=== PATIENT | male | born 1970 | race Hispanic/Latino ===

== ENCOUNTER 2020-07-25 20:26 | Inpatient (IN) | payer BC ==
[~2020-07-25] VITALS: Ht 177.8 cm; Wt 111.1 kg
[2020-07-25 20:58] LABS: BASOPHILS % 0.3 % (0.0-1.0); EOSINOPHILS # (AUTO) 0.1 (0.0-0.4); HEMATOCRIT 38.6 % (38.2-49.6); HEMOGLOBIN 13.5 g/dL (14.0-18.0); LYMPHOCYTES # (AUTO) 2.8 (1.0-3.2); LYMPHOCYTES % 26.8 % (18.0-39.1); MEAN CORPUSCULAR HEMOGLOBIN 30.7 pg (28-32); MEAN CORPUSCULAR VOLUME 87.7 fL (81-99); MONOCYTES # (AUTO) 0.8 (0.2-0.8); MONOCYTES % 7.3 % (4.4-11.3); NEUTROPHILS # (AUTO) 6.7 (2.1-6.9); NEUTROPHILS % 63.7 % (38.7-80.0); PLATELET COUNT 200 x10e3/uL (140-360); RED CELL DISTRIBUTION WIDTH 11.9 % (11.7-14.4)
--- NOTE | 2020-07-25 21:01 | NUR ---
bladder scan shows >100cc
[2020-07-25 21:08] LABS: CALCIUM 9.6 mg/dL (8.4-10.2); CREATININE, SERUM 1.47 mg/dL (0.72-1.25)
--- NOTE | 2020-07-25 21:10 | Emergency Department Note ---
History of Present Illnes History of Present Illness Chief Complaint: Genitourinary History of Present Illness This is a 49 year old male REPORTS DARK, TEA COLORED URINE X1 DAY WITH INTERMITTENT LOWER BACK PAIN;, DENIES N/V/D. Historian: Patient Arrival Mode: Car Onset (how long ago): day(s) (1) Location: LOWER BACK Quality: PAIN, TROUBLE URINATIN Radiation: Reports non-radiation Severity: moderate Onset quality: sudden Duration (how long): day(s) (1) Timing of current episode: intermittent Progression: worsening Context: Denies recent illness, Denies recent surgery, Denies trauma/injury Relieving factors: none Exacerbating factors: none Associated symptoms: Reports denies other symptoms Treatments prior to arrival: none Past Medical/Family History Physician Review I have reviewed the patient's past medical and family history. Any updates have been documented here. Past Medical History Recent Fever: No Clinical Suspicion of Infectio: Yes New/Unexplained Change in Ment: No Past Medical History: Hypertension, Diabetes, Hyperlipedemia Past Surgical History: Hernia Repair Social History Smoking Cessation: Never Smoker Counseling Performed: No Alcohol Use: None Any Illegal Drug Use: No Family History Family history of heart diseas: No Other Any Pre-Existing Lines (PICC,: No Review of Systems Review of Systems Constitutional: Reports no symptoms EENTM: Reports no symptoms Cardiovascular: Reports no symptoms Respiratory: Reports no symptoms Gastrointestinal: Reports no symptoms Genitourinary: Reports as per HPI Musculoskeletal: Reports no symptoms Integumentary: Reports no symptoms Neurological: Reports no symptoms Psychological: Reports no symptoms Endocrine: Reports no symptoms Hematological/Lymphatic: Reports no symptoms Physical Exam Related Data Allergies: Coded Allergies: No Known Allergies (Unverified , 07/25/20) Triage Vital Signs Vital Signs Date Time Temp Pulse Resp B/P (MAP) Pulse Ox O2 Delivery O2 Flow Rate FiO2 07/25/20 20:42 97.9 93 18 199/108 100 Room Air Vital signs reviewed: Yes Physical Exam CONSTITUTIONAL Constitutional: Present well-developed, Present well-nourished HENT HENT: Present normocephalic, Present atraumatic, Present oropharynx clear/moist, Present nose normal HENT L/R: Present left ext ear normal, Present right ext ear normal EYES Eyes: Reports PERRL, Reports conjunctivae normal NECK Neck: Present ROM normal PULMONARY Pulmonary: Present effort normal, Present breath sounds normal CARDIOVASCULAR Cardiovascular: Present regular rhythm, Present heart sounds normal, Present capillary refill normal, Present normal rate GASTROINTESTINAL Abdominal: Present soft, Present bowel sounds normal, Present tender (MILD SUPRAPUBIC TENDERNESS) GENITOURINARY Genitourinary: Present exam deferred SKIN Skin: Present warm, Present dry MUSCULOSKELETAL Musculoskeletal: Present ROM normal NEUROLOGICAL Neurological: Present alert, Present oriented x 3, Present no gross motor or sensory deficits PSYCHOLOGICAL Psychological: Present mood/affect normal, Present judgement normal Results Laboratory Result Diagram: 07/25/202041 Laboratory Laboratory Tests Test 07/25/20 21:20 07/25/20 20:42 Urine Color Yellow (YELLOW) Urine Clarity Clear (CLEAR) Urine pH 5.5 (5 - 7) Urine Specific [place] 1.025 (1.010-1.025) Urine Protein Negative (NEGATIVE) Urine Glucose (UA) 1+ (NEGATIVE) Urine Ketones Negative (NEGATIVE) Urine Blood 2+ (NEGATIVE) Urine Nitrite Negative (NEGATIVE) Urine Bilirubin Negative (NEGATIVE) Urine Urobilinogen 0.2 mg/dL (0.2 - 1) Urine Leukocyte Esterase Negative (NEGATIVE) Urine RBC 6-10 /HPF (0-5) Urine WBC 0-5 /HPF (0-5) Urine Epithelial Cells Few /LPF (NONE) Urine Uric Acid Crystals Few (FEW) Urine Bacteria Few /HPF (NONE) White Blood Count 10.44 x10e3/uL (4.8-10.8) Red Blood Count 4.40 x10e6/uL (4.3-5.7) Hemoglobin 13.5 g/dL (14.0-18.0) Hematocrit 38.6 % (38.2-49.6) Mean Corpuscular Volume 87.7 fL (81-99) Mean Corpuscular Hemoglobin 30.7 pg (28-32) Mean Corpuscular Hemoglobin Concent 35.0 g/dL (31-35) Red Cell Distribution Width 11.9 % (11.7-14.4) Platelet Count 200 x10e3/uL (140-360) Neutrophils (%) (Auto) 63.7 % (38.7-80.0) Lymphocytes (%) (Auto) 26.8 % (18.0-39.1) Monocytes (%) (Auto) 7.3 % (4.4-11.3) Eosinophils (%) (Auto) 1.0 % (0.0-6.0) Basophils (%) (Auto) 0.3 % (0.0-1.0) Neutrophils # (Auto) 6.7 (2.1-6.9) Lymphocytes # (Auto) 2.8 (1.0-3.2) Monocytes # (Auto) 0.8 (0.2-0.8) Eosinophils # (Auto) 0.1 (0.0-0.4) Basophils # (Auto) 0.0 (0.0-0.1) Absolute Immature Granulocyte (auto 0.09 x10e3/uL (0-0.1) Sodium Level 138 mmol/L (136-145) Potassium Level 4.0 mmol/L (3.5-5.1) Chloride Level 103 mmol/L (98-107) Carbon Dioxide Level 20 mmol/L (22-29) Anion Gap 19.0 mmol/L (8-16) Blood Urea Nitrogen 17 mg/dL (7-26) Creatinine 1.47 mg/dL (0.72-1.25) Estimat Glomerular Filtration Rate 51 ML/MIN (60-) BUN/Creatinine Ratio 12 (6-25) Glucose Level 195 mg/dL (74-118) Calcium Level 9.6 mg/dL (8.4-10.2) Laboratory Tests Test 07/25/20 20:42 White Blood Count 10.44 x10e3/uL (4.8-10.8) Red Blood Count 4.40 x10e6/uL (4.3-5.7) Hemoglobin 13.5 g/dL (14.0-18.0) Hematocrit 38.6 % (38.2-49.6) Mean Corpuscular Volume 87.7 fL (81-99) Mean Corpuscular Hemoglobin 30.7 pg (28-32) Mean Corpuscular Hemoglobin Concent 35.0 g/dL (31-35) Red Cell Distribution Width 11.9 % (11.7-14.4) Platelet Count 200 x10e3/uL (140-360) Neutrophils (%) (Auto) 63.7 % (38.7-80.0) Lymphocytes (%) (Auto) 26.8 % (18.0-39.1) Monocytes (%) (Auto) 7.3 % (4.4-11.3) Eosinophils (%) (Auto) 1.0 % (0.0-6.0) Basophils (%) (Auto) 0.3 % (0.0-1.0) Neutrophils # (Auto) 6.7 (2.1-6.9) Lymphocytes # (Auto) 2.8 (1.0-3.2) Monocytes # (Auto) 0.8 (0.2-0.8) Eosinophils # (Auto) 0.1 (0.0-0.4) Basophils # (Auto) 0.0 (0.0-0.1) Absolute Immature Granulocyte (auto 0.09 x10e3/uL (0-0.1) Lab results reviewed: Yes Imaging Imaging results reviewed: Yes Impressions Procedure: [id number] CT/CT ABDOMEN/PELVIS WO Exam Date: 07/25/20 Exam Time: 2204 REPORT STATUS: Signed EXAM: CT Abdomen and Pelvis WITHOUT contrast INDICATION: ^STONE PROTOCOL ^[id number] ^2204 ^Y COMPARISON: None. TECHNIQUE: Abdomen and pelvis were scanned utilizing a multidetector helical scanner from the lung base to the pubic symphysis without administration of IV contrast. Absence of intravenous contrast decreases sensitivity for detection of focal lesions and vascular pathology. Coronal and sagittal reformations were obtained. Routine protocol was performed. IV CONTRAST: None ORAL CONTRAST: None COMPLICATIONS: None RADIATION DOSE: Total DLP: A 45.6 mGy*cm Estimated effective dose: (DLP x 0.015 x size factor) mSv CTDIvol has been reviewed. It is below the limits set by the Radiation Protocol Committee (RPC). FINDINGS: LINES and TUBES: None. LOWER THORAX: Unremarkable HEPATOBILIARY: Hepatic steatosis. No biliary ductal dilation. GALLBLADDER: No radio-opaque stones or sludge. No wall thickening. SPLEEN: No splenomegaly. PANCREAS: No focal masses or ductal dilatation. ADRENALS: No adrenal nodules KIDNEYS/URETERS: Distal right ureteral calculus with mild right hydroureteronephrosis and moderate right perinephric and periureteral fat stranding. Ill-defined right renal inferior pole hypodensity is probably a cyst measuring approximately 4.2 cm. Evaluation of renal parenchyma is limited without intravenous contrast. No left renal stone or hydronephrosis. GI TRACT: No abnormal distention, wall thickening, or evidence of bowel obstruction. Appendix is normal. PELVIC ORGANS/BLADDER: Unremarkable. LYMPH NODES: No lymphadenopathy. VESSELS: Unremarkable. PERITONEUM / RETROPERITONEUM: No free air or fluid. BONES: Peripherally sclerotic lytic right iliac lesion measuring 2.8 cm. There are also left iliac sclerotic foci at the same level. SOFT TISSUES: Unremarkable. IMPRESSION: 1. 3 mm distal right ureteral obstructive calculus with mild right hydroureteronephrosis. Right perinephric and periureteral fat stranding. Superimposed urinary tract infection cannot be excluded. 2. Suspected right renal inferior pole cyst. Evaluation of renal parenchyma is limited without intravenous contrast. Recommend correlation with nonurgent renal ultrasound. 3. Hepatic steatosis. 4. Right iliac lytic lesion with sclerotic border, probably benign. Signed by: Dr. Ramirez Hyde MD on 07/25/2020 11:10 PM Dictated By: RAMIREZ HYDE MD 09 Transcribed By: OMAR on 07/25/202309 COPY TO: MOHAN DEVI MD~ Assessment & Plan Medical Decision Making MDM PT WITH TROUBLE URINATING, LOW BACK PAIN AND STATES URINE IS DARK IN COLOR CBC, CMP, UA ORDERED TO EVAL FOR HEMATURIA, UTI, LEUKOCYTOSIS, ELEVATED LFT'S, RENAL INSUFFICIENCY/FAILURE PT WITH URETEROLITHIASIS AND PERINEPHRIC FAT STRANDING ON RIGHT I SPOKE WITH DR HULL AND DR RAMIREZ Assessment & Plan Final Impression: (1) Ureterolithiasis (2) Intractable pain Depart Disposition: ADMITTED Last Vital Signs Date Time Temp Pulse Resp B/P (MAP) Pulse Ox O2 Delivery O2 Flow Rate FiO2 07/25/20 20:42 97.9 93 18 199/108 100 Room Air MOHAN DEVI MD Jul 25, 2020 21:10
[2020-07-25] MEDS ORDERED: MORPHINE SULFATE 2 MG/ML SYR 1ML IV STA (21:26)
[2020-07-25] MEDS ORDERED: ONDANSETRON HCL INJ 2MG/ML 2ML 2 MG/ML VIAL IV STA (21:26)
--- NOTE | 2020-07-25 21:29 | NUR ---
sterile technique used for straight cath procedure. only 80cc obtained, urine is yellow and clear. patient tolerated procedure well.
[2020-07-25 21:39] LABS: BILIRUBIN,URINE NEGATIVE (NEGATIVE); CLARITY,URINE CLEAR (CLEAR); COLOR,URINE YELLOW (YELLOW); KETONES,URINE NEGATIVE (NEGATIVE); LEUKOCYTE ESTERASE ,URINE NEGATIVE (NEGATIVE); NITRITE,URINE NEGATIVE (NEGATIVE); PROTEIN,URINE DIPSTICK NEGATIVE (NEGATIVE); URINE UROBILINOGEN 0.2 mg/dL (0.2 - 1)
[2020-07-25 21:42] LABS: BACTERIA,URINE FEW /HPF; EPITHELIAL CELLS,URINE FEW /LPF; WBC,URINE (MAN) 0-5 /HPF (0-5)
[2020-07-25 21:45] LABS: URIC ACID CRYSTALS,URINE FEW (FEW)
--- NOTE | 2020-07-25 23:13 | Diagnostic Imaging Report ---
EXAM: CT Abdomen and Pelvis WITHOUT contrast INDICATION: ^STONE PROTOCOL ^[id number] ^2204 ^Y COMPARISON: None. TECHNIQUE: Abdomen and pelvis were scanned utilizing a multidetector helical scanner from the lung base to the pubic symphysis without administration of IV contrast. Absence of intravenous contrast decreases sensitivity for detection of focal lesions and vascular pathology. Coronal and sagittal reformations were obtained. Routine protocol was performed. IV CONTRAST: None ORAL CONTRAST: None COMPLICATIONS: None RADIATION DOSE: Total DLP: A 45.6 mGy*cm Estimated effective dose: (DLP x 0.015 x size factor) mSv CTDIvol has been reviewed. It is below the limits set by the Radiation Protocol Committee (RPC). FINDINGS: LINES and TUBES: None. LOWER THORAX: Unremarkable HEPATOBILIARY: Hepatic steatosis. No biliary ductal dilation. GALLBLADDER: No radio-opaque stones or sludge. No wall thickening. SPLEEN: No splenomegaly. PANCREAS: No focal masses or ductal dilatation. ADRENALS: No adrenal nodules KIDNEYS/URETERS: Distal right ureteral calculus with mild right hydroureteronephrosis and moderate right perinephric and periureteral fat stranding. Ill-defined right renal inferior pole hypodensity is probably a cyst measuring approximately 4.2 cm. Evaluation of renal parenchyma is limited without intravenous contrast. No left renal stone or hydronephrosis. GI TRACT: No abnormal distention, wall thickening, or evidence of bowel obstruction. Appendix is normal. PELVIC ORGANS/BLADDER: Unremarkable. LYMPH NODES: No lymphadenopathy. VESSELS: Unremarkable. PERITONEUM / RETROPERITONEUM: No free air or fluid. BONES: Peripherally sclerotic lytic right iliac lesion measuring 2.8 cm. There are also left iliac sclerotic foci at the same level. SOFT TISSUES: Unremarkable. IMPRESSION: 1. 3 mm distal right ureteral obstructive calculus with mild right hydroureteronephrosis. Right perinephric and periureteral fat stranding. Superimposed urinary tract infection cannot be excluded. 2. Suspected right renal inferior pole cyst. Evaluation of renal parenchyma is limited without intravenous contrast. Recommend correlation with nonurgent renal ultrasound. 3. Hepatic steatosis. 4. Right iliac lytic lesion with sclerotic border, probably benign. Signed by: Dr. Ramirez Jones MD on 07/25/2020 11:10 PM
--- OUTSIDE RECORDS SUMMARY | 2020-07-25 23:33 | XMS REPORT | Continuity of Care Document ---
Author Author [facility] t Organization [facility] Address [address] [place] [address] Phone Unavailable Care Team Providers Care Features Editor Name Role Phone Stephon DEVI Attphys Unavailable SHERIF STINSON P.A. Attphys Unavailable PRASANNA PAIZ APRN Attphys Unavailable ISAIAS SOLANO M.D. Attphys Unavailable HERMAN CHAND M.D. Attphys Unavailable TROY PHILLIPS D.O. Attphys Unavailable CURRY ANDINO M.D. Attphys Unavailable Payers Payer Name Policy Type Policy Number Effective Date Expiration Date S ource Problems Condition Name Condition Details Condition Category Status Onset Date Resolution Date Last Treatment Date Treating Clinician Comments Source History of tonsillitis History of tonsillitis Problem Resolved [facility] History of Allergic rhinitis due to pollen History of Allergic rhinitis due to pollen Problem Resolved [facility] History of conjunctivitis History of conjunctivitis Problem Resolved [facility] Obesity (BMI 30-39.9) Obesity (BMI 30-39.9) Problem Active [facility] History of Upper respiratory infection, acute History of Upper respiratory infection, acute Problem Resolved [facility] Nontraumatic rupture of biceps femoris tendon of right lower extremity Nontraumatic rupture of biceps femoris tendon of right lower extremity Problem Active [facility] Erectile dysfunction Erectile dysfunction Problem Active [facility] Umbilical hernia Umbilical hernia Problem Active [facility] Fever and chills Fever and chills Problem Active [facility] GERD without esophagitis GERD without esophagitis Problem Active [facility] Hyperglycemia Hyperglycemia Problem Active [facility] Diabetes mellitus Diabetes mellitus Problem Active [facility] Essential (primary) hypertension Essential (primary) hypertensio n Problem Active [facility] Hypertriglyceridemia Hypertriglyceridemia Problem Active [facility] Mixed hyperlipidemia Mixed hyperlipidemia Problem Active [facility] Influenza vaccination declined Influenza vaccination declined Problem Active [facility] Negative depression screening Negative depression screening Problem Active [facility] Allergies, Adverse Reactions, Alerts Allergy Name Allergy Type Status Severity Reaction(s) Onset Date Inacti ve Date Treating Clinician Comments Source No Known Allergies DA Active U 2018-12-29 00:00:00 [facility] No Known Allergies DA Active U 2014-12-14 00:00:00 [facility] Family History Family Member Diagnosis Comments Start Date Stop Date Source Unknown Family Member Family history of Denial Of Any Significant Medical History Family History [facility] Father Family history of diabetes mellitus [facility] Father Family history of hypertension [facility] Social History Smoking Status Start Date Stop Date Source Never smoked tobacco (finding[facility] Medications Ordered Medication Name Filled Medication Name Start Date Stop Da te Current Medication? Ordering Clinician Indication Dosage Frequency Signature (SIG) Comments Components Source hydroCHLOROthiazide 12.5 MG Oral Capsule hydroCHLOROth iazide 12.5 MG Oral Capsule 2020-07-05 00:00:00 Yes SHERIF STINSON P.A. 1 Q D TAKE 1 CAPSULE DAILY [facility] Januvia 100 MG Oral Tablet Januvia 100 MG Oral Tablet 2020-04-08 00:0 0:00 Yes SHERIF STINSON P.A. 1 QD TAKE 1 TABLET DAILY [facility] metFORMIN HCl ER 500 MG Oral Tablet Extended Release 2 4 Hour metFORMIN HCl ER 500 MG Oral Tablet Extended Release 24 Hour 2017-12-07 00:00:00 Yes SHERIF STINSON P.A. 1 Q0.5D TAKE 1 TABLET BY MOUTH TWICE DAILY [facility] Lisinopril 40 MG Oral Tablet Lisinopril 40 MG Oral Tablet 00:00:00 Yes SHERIF STINSON P.A. QD TAKE 1 TABLET BY MOUTH EVERY DAY [facility] Simvastatin 20 MG Oral Tablet Simvastatin 20 MG Oral Tablet 2015 00:00:00 Yes SHERIF STINSON P.A. QD TAKE 1 TABLET BY MOUT H AT BEDTIME [facility] Miriam Aspirin EC Low Dose 81 MG Oral Tablet Delayed Re lease Miriam Aspirin EC Low Dose 81 MG Oral Tablet Delayed Release Yes [facility] Immunizations Ordered Immunization Name Filled Immunization Name Date Status Comments Source Tdap Unknown Completed [facility] Vital Signs Vital Name Observation Time Observation Value Comments Source Systolic blood pressure 2020-07-05 07:54:00 153 mm[Hg] Loca tion: LUE; Position: Sitting [facility] Diastolic blood pressure 2020-07-05 07:54:00 88 mm[Hg] Loc ation: LUE; Position: Sitting [facility] Body height 2020-07-05 07:54:00 70 [in_us] [facility] Weight 2020-07-05 07:54:00 248 [lb_av] [facility] Body mass index (BMI) [Ratio] 2020-07-05 07:54:00 35.58 kg/m2 [facility] Body temperature 2020-07-05 07:54:00 97.4 [degF] Method: Temporal [facility] Heart Rate 2020-07-05 07:54:00 80 /min [facility] Respiratory rate 2020-07-05 07:54:00 14 /min [facility] Systolic blood pressure 2020-04-08 07:43:00 171 mm[Hg] Loca tion: LUE; Position: Sitting [facility] Diastolic blood pressure 2020-04-08 07:43:00 82 mm[Hg] Loc ation: LUE; Position: Sitting [facility] Heart Rate 2020-04-08 07:43:00 73 /min [facility] Systolic blood pressure 2020-04-08 07:42:00 168 mm[Hg] Loca tion: LUE; Position: Sitting [facility] Diastolic blood pressure 2020-04-08 07:42:00 87 mm[Hg] Loc ation: LUE; Position: Sitting [facility] Heart Rate 2020-04-08 07:42:00 67 /min [facility] Body height 2020-04-08 07:42:00 70 [in_us] [facility] Weight 2020-04-08 07:42:00 255 [lb_av] [facility] Body mass index (BMI) [Ratio] 2020-04-08 07:42:00 36.59 kg/m2 [facility] Body temperature 2020-04-08 07:42:00 97.8 [degF] Method: Temporal [facility] Respiratory rate 2020-04-08 07:42:00 15 /min [facility] BP Systolic 2019-12-11 07:46:00 144 mm[Hg] Location: LUE; Positi on: Sitting [facility] BP Diastolic 2019-12-11 07:46:00 81 mm[Hg] Location: LUE; Positi on: Sitting [facility] Heart Rate 2019-12-11 07:46:00 68 /min [facility] BP Systolic 2019-12-11 07:45:00 151 mm[Hg] Location: LUE; Positi on: Sitting [facility] BP Diastolic 2019-12-11 07:45:00 81 mm[Hg] Location: LUE; Positi on: Sitting [facility] Heart Rate 2019-12-11 07:45:00 75 /min [facility] Height 2019-12-11 07:45:00 70 [in_us] [facility] Weight 2019-12-11 07:45:00 250.25 [lb_av] [facility] Body Mass Index Calculated 2019-12-11 07:45:00 35.91 kg/m2 [facility] Temperature 2019-12-11 07:45:00 97.5 [degF] Method: Temporal [facility] Respiration Rate 2019-12-11 07:45:00 16 /min [facility] BP Systolic 2019-09-02 07:51:00 151 mm[Hg] Location: LUE; Positi on: Sitting [facility] BP Diastolic 2019-09-02 07:51:00 85 mm[Hg] Location: LUE; Positi on: Sitting [facility] Heart Rate 2019-09-02 07:51:00 73 /min [facility] Respiration Rate 2019-09-02 07:51:00 16 /min [facility] BP Systolic 2019-09-02 07:48:00 164 mm[Hg] Location: LUE; Positi on: Sitting [facility] BP Diastolic 2019-09-02 07:48:00 102 mm[Hg] Location: LUE; Positi on: Sitting [facility] Heart Rate 2019-09-02 07:48:00 72 /min [facility] Respiration Rate 2019-09-02 07:48:00 16 /min [facility] Height 2019-09-02 07:48:00 70 [in_us] [facility] Weight 2019-09-02 07:48:00 246.375 [lb_av] [facility] Body Mass Index Calculated 2019-09-02 07:48:00 35.35 kg/m2 [facility] Temperature 2019-09-02 07:48:00 97.5 [degF] Method: Temporal [facility] BP Systolic 2019-05-28 08:31:00 152 mm[Hg] Location: LUE; Positi on: Sitting [facility] BP Diastolic 2019-05-28 08:31:00 88 mm[Hg] Location: LUE; Positi on: Sitting [facility] Height 2019-05-28 08:31:00 70 [in_us] [facility] Weight 2019-05-28 08:31:00 245 [lb_av] [facility] Body Mass Index Calculated 2019-05-28 08:31:00 35.15 kg/m2 [facility] Temperature 2019-05-28 08:31:00 97.2 [degF] Method: Temporal [facility] Heart Rate 2019-05-28 08:31:00 67 /min [facility] Respiration Rate 2019-05-28 08:31:00 16 /min [facility] BP Systolic 2019-02-14 08:43:00 133 mm[Hg] Location: LUE; Positi on: Sitting [facility] BP Diastolic 2019-02-14 08:43:00 75 mm[Hg] Location: LUE; Positi on: Sitting [facility] Height 2019-02-14 08:43:00 70 [in_us] [facility] Weight 2019-02-14 08:43:00 253.5 [lb_av] [facility] Body Mass Index Calculated 2019-02-14 08:43:00 36.37 kg/m2 [facility] Temperature 2019-02-14 08:43:00 97.4 [degF] Method: Temporal [facility] Heart Rate 2019-02-14 08:43:00 76 /min Location: L Brachial Artery; [facility] Respiration Rate 2019-02-14 08:43:00 16 /min [facility] Procedures Procedure Date / Time Performed Performing Clinician Sour e [O] Hemoglobin A1c (in office) 2020-04-08 00:00:00 [facility] [Q] LIPID PANEL WITH REFLEX TO DIRECT LDL 2020-04-08 00:00:00 [facility] [QL] CMP W/EGFR 2020-04-08 00:00:00 [facility] [QL] CREATINE KINASE, TOTAL 2020-04-08 00:00:00 [facility] [QL] TSH, 3RD GENERATION W/REFLEX TO FT4 2020-04-08 00:00:00 [facility] [QLH] CMP W/EGFR 2019-12-11 00:00:00 [facility] [QL] HEMOGLOBIN A1c 2019-12-11 00:00:00 [facility] [QL] MICROALBUMIN, RANDOM URINE (W/CREATININE) 2019-12-11 00:00 :00 [facility] [Q] LIPID PANEL WITH REFLEX TO DIRECT LDL 2019-12-11 00:00:00 [facility] [QL] CREATINE KINASE, TOTAL 2019-12-11 00:00:00 [facility] [QL] TSH, 3RD GENERATION W/REFLEX TO FT4 2019-12-11 00:00:00 [facility] [Q] LIPID PANEL WITH REFLEX TO DIRECT LDL 2019-09-02 00:00:00 [facility] [QLH] CMP W/EGFR 2019-09-02 00:00:00 [facility] [QLH] TSH, 3RD GENERATION W/REFLEX TO FT4 2019-09-02 00:00:00 [facility] [QL] CREATINE KINASE, TOTAL 2019-09-02 00:00:00 [facility] [QL] MICROALBUMIN, RANDOM URINE (W/CREATININE) 2019-09-02 00:00 :00 [facility] [QL] TSH, 3RD GENERATION W/REFLEX TO FT4 2019-02-14 00:00:00 [facility] [QLH] CMP W/EGFR 2019-02-14 00:00:00 [facility] [[facility]] CBC (INCLUDES DIFF/PLT) 2019-02-14 00:00:00 [facility] [[facility]] HEMOGLOBIN A1c 2019-02-14 00:00:00 [facility] [[facility]] MICROALBUMIN, RANDOM URINE (W/CREATININE) 2019-02-14 00:00 :00 [facility] [] LIPID PANEL WITH REFLEX TO DIRECT LDL 2019-02-14 00:00:00 [facility] Plan of Care Planned Activity Planned Date Details Comments Source Future Appointment 2020-10-04 07:30:00 Clyde GORMAN [facility] Encounters Start Date/Time End Date/Time Encounter Type Admission Type [facility] Care Department Encounter ID Source 2020-07-05 07:30:00 2020-07-05 07:30:00 Appointment; SHERIF STINSON P.A. CAMPOS, BERTHA [facility] [id number] [facility] 2020-04-08 07:30:00 2020-04-08 07:30:00 Appointment; SHERIF STINSON P.A. CAMPOS, BERTHA [facility], [address] [id number] [facility] 2019-12-11 07:30:00 2019-12-11 07:30:00 Appointment; SHERIF STINSON P.A. CAMPOS, BERTHA P.[facility]ik[facility], [address] [id number] [facility] 2019-09-02 07:30:00 2019-09-02 07:30:00 Appointment; SHERIF STINSON P.A. CAMPOS, BERTHA, P.[facility] [id number] [facility] 2019-05-28 08:15:00 2019-05-28 08:15:00 Appointment; SHERIF STINSON P.A. CAMPOS, BERTHA, [facility], [address] [id number] [facility] 2019-02-14 08:30:00 2019-02-14 08:30:00 Appointment; PRASANNA PAIZ A PRN BECK, SHERI, APRN [facility] [id number] [facility] 2018-08-15 07:45:00 2018-08-15 07:45:00 Appointment; SHERIF STINSON P.A. CAMPOS, BERTHA [facility] [id number] [facility] 2018-05-15 07:45:00 2018-05-15 07:45:00 Appointment; SHERIF STINSON P.A. CAMPOS, BERTHA, P.A. UTP UTP [id number] [facility] 2017-12-07 14:30:00 2017-12-07 14:30:00 Appointment; SHERIF STINSON P.A. CAMPOS, BERTHA, P.AVikki [facility] UTP [id number] [facility] 2017-11-01 14:00:00 2017-11-01 14:00:00 Appointment; ISAIAS SOLANO M.D. SATTAR, BEENA, M.D. [facility] UTP [id number] [facility] 2017-10-29 10:45:00 2017-10-29 10:45:00 Appointment; GEO CHAND M.D. BORTOLOTTI, JULIE, M.D. [facility] UTP [id number] [facility] 2017-08-31 14:45:00 2017-08-31 14:45:00 Appointment; SHERIF STINSON P.A. CAMPOS, BERTHA, P.A. [facility] UTP [id number] [facility] 2017-07-27 09:15:00 2017-07-27 09:15:00 Appointment; MEREDITH PHILLIPS D.O. EKHAESE, OBONORUMA, D.O. UTP UTP [id number] [facility] 2017-07-02 15:00:00 2017-07-02 15:00:00 Appointment; CURRY ANDINO M.D. VAZQUEZ, NOEMI, M.D. [facility] UTP [id number] [facility] 2017-06-27 10:00:00 2017-06-27 10:00:00 Appointment; SHERIF STINSON P.A. CAMPOS, BERTHA, P.AVikki UTP UTP [id number] [facility] 2017-06-06 14:00:00 2017-06-06 14:00:00 Appointment; MEREDITH PHILLIPS D.O. EKHAESE, OBONORUMA, D.O. UTP UTP [id number] [facility] 2017-04-06 08:00:00 2017-04-06 08:00:00 Appointment; SHERIF STINSON P.A. CAMPOS, BERTHA, P.A. UTP UTP [id number] [facility] Results Test Description Test Time Test Comments Results Result Comments Source CT ABDOMEN/PELVIS WO 2020-07-25 22:31:00 [place] [address] Patient Name: HOLLY LEYVA MR #: [id number] : 1970 Age/Sex: 49/M Req #: [id number] Adm Physician: Ordered by: MOHAN DEVI MD Report #: [id number] Location: ER Room/Bed: Procedure: [id number] CT/CT ABDOMEN/PELVIS WO Exam Date: 07/25/20 Exam Time: 2204 REPORT STATUS: Signed EXAM: CT Abdomen and Pelvis WITHOUT contrast INDICATION: STONE PROTOCOL [id number] COMPARISON: None. TECHNIQUE: Abdomen and pelvis were scanned utilizing a multidetector helical scanner from the lung base to the pubic symphysis wi thout administration of IV contrast. Absence of intravenous contrast decreases sensitivity for detection of focal lesions and vascular pathology. Coronal and sagittal reformations were obtained. Routine protocol was performed. IV CONTRAST: None ORAL CONTRAST: None COMPLICATIONS: None RADIATION DOSE: Total DLP: A 45.6 mGy*cm Estimated effective dose: (DLP x 0.015 x size factor) mSv CTDIvol has been reviewed. It is below the limits set by the Radiation Protocol Committee (RPC). FINDINGS: LINES and TUBES: None. LOWER THORAX: Unremarkable HEPATOBILIARY: Hepatic steatosis. No biliary ductal dilation. GALLBLADDER: No radio-opaque stones or sludge. No wall thickening. SPLEEN: No splenomegaly. PANCREAS: No focal masses or ductal dilatation. ADRENALS: No adrenal nodules KIDNEYS/URETERS: Distal right ureteral calculus with mild right hydroureteronephrosis and moderate right perinephric and periureteral fat stranding. Ill-defined right renal inferior pole hypodensity is probably a cyst measuring approximately 4.2 cm. Evaluation of renal parenchyma is limited without intravenous contrast. No left renal stone or hydronephrosis. GI TRACT: No abnormal distention, wall thickening, or evidence of bowel obstruction. Appendix is normal. PELVIC ORGANS/BLADDER: Unremarkable. LYMPH NODES: No lymphadenopathy. VESSELS: Unremarkable. PERITONEUM / RETROPERITONEUM: No free air or fluid. BONES: Peripherally sclerotic lytic right iliac lesion measuring 2.8 cm. There are also left iliac sclerotic foci at the same level. SOFT TISSUES: Unremarkable. IMPRESSION: 1. 3 mm distal right ureteral obstructive calculus with mild right hydroureteronephrosis. Right perinephric and periureteral fat stranding. Superimposed urinary tract infection cannot be excluded. 2. Suspected right renal inferior pole cyst. Evaluation of renal parenchyma is limited without intravenous contrast. Recommend correlation with nonurgent renal ultrasound. 3. Hepatic steatosis. 4. Right iliac lytic lesion with sclerotic border, probably benign. Signed by: Dr. Ramirez Hyde MD on 07/25/2020 11:10 PM Dictated By: RAMIREZ HYDE MD 09 Transcribed By: OMAR on 07/25/202309 COPY TO: MOHAN DEVI MD [O] Hemoglobin A1c (in office) 2020-07-05 07:55:00 Test Item HEMOGLOBIN A1c; Abnormal (test code = 4548-4) 7.1 A [facility][Q] LIPID PANEL WITH REFLEX TO DIRECT LDL 2020-04-08 08:38:00* Test Item Value Reference Range Interpretation Comments CHOLESTEROL, TOTAL; Normal (test code = 2093-3) 166 mg/dl <200 N HDL CHOLESTEROL; Normal (test code = 2085-9) 40 mg/dl > OR = 40 N TRIGLYCERIDES; Above High Threshold (test code = 2571-8) 275 mg/dl <150 If a non-fasting specimen was collected, considerrepeat triglyceride testing on a fasting specimenif clinically indicated. En et al. J. of Clin. Lipidol. 2015;9:129-169. LDL-CHOLESTEROL; Normal (test code = 44119-3) 90 {MG/DL MAKENZIE} N Reference range: <100 Desirable range <100 mg/dL for primary prevention; <70 mg/dL for patients with CHD or diabetic patients with > or = 2 CHD risk factors. LDL-C is now calculated using the Jason calculation, which is a validated novel method providing better accuracy than the Friedewald equation in the estimation of LDL-C. Braden SS et al. GLADIS. 2013;310(19): 1698-4341 (http ://education.BitPoster/faq/MBS622) CHOL/HDLC RATIO (test code = CHOL/HDLC RATIO) 4.2 {CALC} <5.0 N NON HDL CHOLESTEROL (test code = NON HDL CHOLESTEROL) 126 {MG/DL C AL} <130 N For patients with diabetes plus 1 major ASCVD risk factor, treating to a non-HDL-C goal of <100 mg/dL (LDL-C of <70 mg/dL) is considered a therapeutic option. [facility][QL] CMP [id number] 08:38:00* Test Item Value Reference Range Interpretation Comments GLUCOSE; Above High Threshold (test code = 1547-9) 212 mg/dl 65- 99 Fasting reference interval For someone without known diabetes, a glucosevalue >125 mg/dL indicates that they may havediabetes and this should be confirmed with afollow- up test. UREA NITROGEN (BUN) (test code = UREA NITROGEN (BUN)) 16 mg/dl 7-25 N CREATININE (test code = CREATININE) 0.99 mg/dl 0.60-1.35 N eGFR NON- (test code = eGFR NON-TINO N [place]IZ[place]) 90 {ML/MIN/1.7} > OR = 60 N eGFR (test code = eGFR ) 10 4 {ML/MIN/1.7} > OR = 60 N BUN/CREATININE RATIO (test code = BUN/CREATININE RATIO) NOT APPLICA BLE 6-22 SODIUM (test code = SODIUM) 137 mmol/L 135-146 N POTASSIUM (test code = POTASSIUM) 4.3 mmol/L 3.5-5.3 N CHLORIDE (test code = CHLORIDE) 101 mmol/L 98-110 N CARBON DIOXIDE (test code = CARBON DIOXIDE) 28 mmol/L 20-32 N CALCIUM (test code = CALCIUM) 9.7 mg/dl 8.6-10.3 N PROTEIN, TOTAL (test code = PROTEIN, TOTAL) 7.2 g/dl 6.1-8.1 N ALBUMIN (test code = ALBUMIN) 4.5 g/dl 3.6-5.1 N GLOBULIN (test code = GLOBULIN) 2.7 {G/DL CALC} 1.9-3.7 N ALBUMIN/GLOBULIN RATIO (test code = ALBUMIN/GLOBULIN RATIO) 1.7 {CALC} 1.0-2.5 N BILIRUBIN, TOTAL; Normal (test code = 97899-1) 0.5 mg/dl 0.2-1.2 N ALKALINE PHSPHATASE (test code = ALKALINE PHSPHATASE) 73 u/l 36-130 N AST; Normal (test code = 1916-6) 25 u/l 10-40 N ALT; Normal (test code = 1742-6) 38 u/l 9-46 N [facility][QL] CREATINE KINASE, [id number] 08:38:00* Test Item Value Reference Range Interpretation Comments CREATINE KINASE, TOTAL (test code = CREATINE KINASE, TOTAL) 61 u/l 44-196 N [facility][QL] TSH, 3RD GENERATION W/REFLEX TO [id number] 08:38:00* Test Item Value Reference Range Interpretation Comments TSH, 3RD GENERATION W/REFLEX TO FT4 (eboni t code = TSH, 3RD GENERATION W/REFLEX TO FT4) 2.00 {MIU/L} 0.40-4.50 N [facility][O] Hemoglobin A1c (in office)2020-04-08 07:53:00 * Test Item Value Reference Range Interpretation Comments HEMOGLOBIN A1c; Abnormal (test code = 4548-4) 8.1 A [facility][O] Hemoglobin A1c (in office)2019-12-11 10:10:00 * Test Item Value Reference Range Interpretation Comments HEMOGLOBIN A1c; Abnormal (test code = 4548-4) 6.9 A [facility][] LIPID PANEL WITH REFLEX TO DIRECT LDL 2019-12-11 09:01:00* Test Item Value Reference Range Interpretation Comments CHOLESTEROL, TOTAL; Normal (test code = 2093-3) 182 mg/dl <200 N HDL CHOLESTEROL; Below Low Threshold (test code = 2085-9) 38 mg/dl >40 TRIGLYCERIDES; Above High Threshold (test code = 2571-8) 236 mg/dl <150 If a non-fasting specimen was collected, considerrepeat triglyceride testing on a fasting specimenif clinically indicated. En et al. J. of Clin. Lipidol. 2015;9:129-169. LDL-CHOLESTEROL; Above High Threshold (test code = 90043-7) 108 {MG/DL MAKENZIE} Reference range: <100 Desirable range <1 00 mg/dL for primary prevention; <70 mg/dL for patients with CHD or diabetic patients with > or = 2 CHD risk factors. LDL-C is now calculated using the Braden-Contreras calculation, which is a validated novel method providing better accuracy than the Friedewald equation in the estimation of LDL-C. Braden SS et al. GLADIS. 2013;310(19): 8044-0197 (http ://education.Goodreads.Fuhu/faq/MXU228) CHOL/HDLC RATIO (test code = CHOL/HDLC RATIO) 4.8 {CALC} <5.0 N NON HDL CHOLESTEROL (test code = NON HDL CHOLESTEROL) 144 {MG/DL C AL} <130 For patients with diabetes plus 1 major ASCVD risk factor, treating to a non-HDL-C goal of <100 mg/dL (LDL-C of <70 mg/dL) is considered a therapeutic option. [facility]] MICROALBUMIN, RANDOM URINE (W/CREATININE) 2019-12-11 09:01:00* Test Item Value Reference Range Interpretation Comments CREATININE, RANDOM URINE (test code = CREATININE, RANDOM URI NE) 104 mg/dl 20-320 N MICROALBUMIN (test code = MICROALBUMIN) 0.4 mg/dl N Reference RangeNot established MICROALBUMIN/CREATININE RATIO, RANDOM UR INE (test code = MICROALBUMIN/CREATININE RATIO, RANDOM URINE) 4 {MCG/MG CRE} <30 N The ADA de fines abnormalities in albuminexcretion as follows: Category Result (mcg/mg creatinine) Normal <30Microalbuminuria 30-299 Clinical albuminuria > OR = 300 The ADA recommends that at least two of threespecimens collected within a 3-6 month period beabnormal before considering a patient to bewithin a diagnostic category. [facility]] CMP [id number] 09:01:00* Test Item Value Reference Range Interpretation Comments GLUCOSE; Above High Threshold (test code = 1547-9) 181 mg/dl 65- 99 Fasting reference interval For someone without known diabetes, a glucosevalue >125 mg/dL indicates that they may havediabetes and this should be confirmed with afollow- up test. UREA NITROGEN (BUN) (test code = UREA NITROGEN (BUN)) 18 mg/dl 7-25 N CREATININE (test code = CREATININE) 1.01 mg/dl 0.60-1.35 N eGFR NON- (test code = eGFR NON-TINO N [place]) 88 {ML/MIN/1.7} > OR = 60 N eGFR (test code = eGFR ) 10 1 {ML/MIN/1.7} > OR = 60 N BUN/CREATININE RATIO (test code = BUN/CREATININE RATIO) NOT APPLICA BLE 6-22 SODIUM (test code = SODIUM) 138 mmol/L 135-146 N POTASSIUM (test code = POTASSIUM) 4.4 mmol/L 3.5-5.3 N CHLORIDE (test code = CHLORIDE) 102 mmol/L 98-110 N CARBON DIOXIDE (test code = CARBON DIOXIDE) 29 mmol/L 20-32 N CALCIUM (test code = CALCIUM) 10.0 mg/dl 8.6-10.3 N PROTEIN, TOTAL (test code = PROTEIN, TOTAL) 7.4 g/dl 6.1-8.1 N ALBUMIN (test code = ALBUMIN) 4.5 g/dl 3.6-5.1 N GLOBULIN (test code = GLOBULIN) 2.9 {G/DL CALC} 1.9-3.7 N ALBUMIN/GLOBULIN RATIO (test code = ALBUMIN/GLOBULIN RATIO) 1.6 {CALC} 1.0-2.5 N BILIRUBIN, TOTAL; Normal (test code = 39117-2) 0.5 mg/dl 0.2-1.2 N ALKALINE PHSPHATASE (test code = ALKALINE PHSPHATASE) 67 u/l 40-115 N AST; Normal (test code = 1916-6) 18 u/l 10-40 N ALT; Normal (test code = 1742-6) 31 u/l 9-46 N [facility]] CREATINE KINASE, [id number] 09:01:00* Test Item Value Reference Range Interpretation Comments CREATINE KINASE, TOTAL (test code = CREATINE KINASE, TOTAL) 44 u/l 44-196 N [facility]] TSH, 3RD GENERATION W/REFLEX TO FT4 2019-12-11 09:01:00* Test Item Value Reference Range Interpretation Comments TSH, 3RD GENERATION W/REFLEX TO FT4 (eboni t code = TSH, 3RD GENERATION W/REFLEX TO FT4) 1.52 {MIU/L} 0.40-4.50 N [facility]] HEMOGLOBIN [id number] 09:01:00* Test Item Value Reference Range Interpretation Comments HEMOGLOBIN A1c; Above High Threshold (test code = 4548-4) 7.2 {% of total} <5.7 For someone without known diabetes, a he moglobin Q0mmxkyr of 6.5% or greater indicates that they may have diabetes and this should be confirmed with a follow-up test. For someone with known diabetes, a value <7% indicates that their diabetes is well controlled and a value greater than or equal to 7% indicates suboptimal control. A1c targets should be individualized based on duration of diabetes, age, comorbid conditions, and other considerations. Currently, no consensus exists regarding use ofhemoglobin A1c for diagnosis of diabetes for children. [facility][O] Hemoglobin A1c (in office)2019-09-02 09:59:00 * Test Item Value Reference Range Interpretation Comments HEMOGLOBIN A1c; Abnormal (test code = 4548-4) 6.3 A [facility][O] Hemoglobin A1c (in office)2019-05-28 08:40:00 * Test Item Value Reference Range Interpretation Comments HEMOGLOBIN A1c (test code = 4548-4) 6.3 [facility][] LIPID PANEL WITH REFLEX TO DIRECT LDL 2019-02-14 09:36:00* Test Item Value Reference Range Interpretation Comments CHOLESTEROL, TOTAL; Normal (test code = 2093-3) 172 mg/dl <200 N HDL CHOLESTEROL; Below Low Threshold (test code = 2085-9) 38 mg/dl >40 TRIGLYCERIDES; Above High Threshold (test code = 2571-8) 308 mg/dl <150 LDL-CHOLESTEROL; Normal (test code = 71592-8) 93 {MG/DL MAKENZIE} N Reference range: <100 Desirable range <100 mg/dL for primary prevention; <70 mg/dL for patients with CHD or diabetic patients with > or = 2 CHD risk factors. LDL-C is now calculated using the Braden-Contreras calculation, which is a validated novel method providing better accuracy than the Friedewald equation in the estimation of LDL-C. Braden SS et al. GLADIS. 2013;310(56): 7303-8499 (http ://Fighters.BitPoster/faq/GIY234) CHOL/HDLC RATIO (test code = CHOL/HDLC RATIO) 4.5 {CALC} <5.0 N NON HDL CHOLESTEROL (test code = NON HDL CHOLESTEROL) 134 {MG/DL C AL} <130 For patients with diabetes plus 1 major ASCVD risk factor, treating to a non-HDL-C goal of <100 mg/dL (LDL-C of <70 mg/dL) is considered a therapeutic option. [facility]] MICROALBUMIN, RANDOM URINE (W/CREATININE) 2019-02-14 09:36:00* Test Item Value Reference Range Interpretation Comments CREATININE, RANDOM URINE (test code = CREATININE, RANDOM URINE) 96 mg/dl 20-320 N MICROALBUMIN (test code = MICROALBUMIN) <0.2 N Reference RangeNot established MICROALBUMIN/CREATININE RATIO, RANDOM UR INE (test code = MICROALBUMIN/CREATININE RATIO, RANDOM URINE) NOTE <30 N The microa lbumin value is less than 0.2 mg/dLtherefore we are unable to calculate excretionand/or creatinine ratio. The ADA defines abnormalities in albuminexcretion as follows: Category Result (mcg/mg creatinine) Normal <30Microalbuminuria 30-299 Clinical albuminuria > OR = 300 The ADA recommends that at least two of threespecimens collected within a 3-6 month period beabnormal before considering a patient to bewithin a diagnostic category. [facility]] CMP [id number] 09:36:00* Test Item Value Reference Range Interpretation Comments GLUCOSE; Above High Threshold (test code = 1547-9) 184 mg/dl 65- 99 Fasting reference interval For someone without known diabetes, a glucosevalue >125 mg/dL indicates that they may havediabetes and this should be confirmed with afollow- up test. UREA NITROGEN (BUN) (test code = UREA NITROGEN (BUN)) 20 mg/dl 7-25 N CREATININE (test code = CREATININE) 0.97 mg/dl 0.60-1.35 N eGFR NON- (test code = eGFR NON-TINO N [place]) 93 {ML/MIN/1.7} > OR = 60 N eGFR (test code = eGFR ) 10 7 {ML/MIN/1.7} > OR = 60 N BUN/CREATININE RATIO (test code = BUN/CREATININE RATIO) NOT APPLICA BLE 6-22 SODIUM (test code = SODIUM) 135 mmol/L 135-146 N POTASSIUM (test code = POTASSIUM) 4.2 mmol/L 3.5-5.3 N CHLORIDE (test code = CHLORIDE) 100 mmol/L 98-110 N CARBON DIOXIDE (test code = CARBON DIOXIDE) 29 mmol/L 20-32 N CALCIUM (test code = CALCIUM) 9.7 mg/dl 8.6-10.3 N PROTEIN, TOTAL (test code = PROTEIN, TOTAL) 7.3 g/dl 6.1-8.1 N ALBUMIN (test code = ALBUMIN) 4.4 g/dl 3.6-5.1 N GLOBULIN (test code = GLOBULIN) 2.9 {G/DL CALC} 1.9-3.7 N ALBUMIN/GLOBULIN RATIO (test code = ALBUMIN/GLOBULIN RATIO) 1.5 {CALC} 1.0-2.5 N BILIRUBIN, TOTAL; Normal (test code = 34271-2) 0.5 mg/dl 0.2-1.2 N ALKALINE PHSPHATASE (test code = ALKALINE PHSPHATASE) 68 u/l 40-115 N AST; Normal (test code = 1916-6) 16 u/l 10-40 N ALT; Normal (test code = 1742-6) 30 u/l 9-46 N [facility]] CBC (INCLUDES DIFF/PLT)2019-02-14 09:36:00* Test Item Value Reference Range Interpretation Comments WHITE BLOOD CELL COUNT (test code = WHITE BLOOD CELL COUNT) 5.4 {Thousand/u} 3.8-10.8 N RED BLOOD CELL COUNT (test code = RED BLOOD CELL COUNT) 4.31 {Million/uL} 4.20-5.80 N HEMAGLOBIN; Normal (test code = 05627-9) 13.5 g/dl 13.2-17.1 N HEMATOCRIT; Normal (test code = 4544-3) 38.8 % 38.5-50.0 N MCV; Normal (test code = 787-2) 90.0 fL 80.0-100.0 N MCHC; Normal (test code = 20401-8) 34.8 g/dl 32.0-36.0 N RDW; Normal (test code = 788-0) 12.0 % 11.0-15.0 N PLATELET COUNT; Normal (test code = 777-3) 219 {Thousand/u} 140-400 N MPV; Normal (test code = 39729-2) 11.3 fL 7.5-12.5 N ABSOLUTE NEUTROPHILS (test code = ABSOLUTE NEUTROPHILS) 2862 {cells/uL} 7843-5259 N ABSOLUTE LYMPHOCYTES (test code = ABSOLUTE LYMPHOCYTES) 1987 {cells/uL} 850-3900 N ABSOLUTE MONOCYTES (test code = ABSOLUTE MONOCYTES) 410 {cells/uL} 200-950 N ABSOLUTE EOSINOPHILS (test code = ABSOLUTE EOSINOPHILS) 108 {cells/ uL} 15-500 N ABSOLUTE BASOPHILS (test code = ABSOLUTE BASOPHILS) 32 {cells/uL} 0 -200 N NEUTROPHILS (test code = NEUTROPHILS) 53 % N LYMPHOCYTES (test code = LYMPHOCYTES) 36.8 % N MONOCYTES; Normal (test code = 13256-0) 7.6 % N EOSINOPHILS; Normal (test code = 13567-9) 2.0 % N BASOPHILS; Normal (test code = 13397-8) 0.6 % N [facility]] TSH, 3RD GENERATION W/REFLEX TO FT4 2019-02-14 09:36:00* Test Item Value Reference Range Interpretation Comments TSH, 3RD GENERATION W/REFLEX TO FT4 (eboni t code = TSH, 3RD GENERATION W/REFLEX TO FT4) 2.01 {MIU/L} 0.40-4.50 N [facility]] HEMOGLOBIN [id number] 09:36:00* Test Item Value Reference Range Interpretation Comments HEMOGLOBIN A1c; Above High Threshold (test code = 4548-4) 7.3 {% of total} <5.7 For someone without known diabetes, a he moglobin U8kybpdb of 6.5% or greater indicates that they may have diabetes and this should be confirmed with a follow-up test. For someone with known diabetes, a value <7% indicates that their diabetes is well controlled and a value greater than or equal to 7% indicates suboptimal control. A1c targets should be individualized based on duration of diabetes, age, comorbid conditions, and other considerations. Currently, no consensus exists regarding use ofhemoglobin A1c for diagnosis of diabetes for children. [facility]- XR FINGER(S) 2+V [id number] 02:17:00 FAX: Toni Desir MD [phone] [place]: St: REG FAX: Angel Lyle NP [phone] Name: HOLLY LEYVA [facility] : 1970 Age/S: 48/M [address] [facility] Unit #: [id number] Loc: [place] [address] Phys: Angel Lyle NP Acct: [id number] Dis Date: Status: REG ER PHONE #: [phone] Exam Date: 12/29/2018 0208 FAX #: [phone] Reason: LAC FINGER EXAMS: CPT CODE: [id number] XR FINGER(S) 2+[place] [address] - XR FINGER(S) 2+V LT, 12/29/2018 1:16 AM Reason F or Examination: LAC FINGER Comparison: None available Location: R16: Findings: No evidence of acute frac ture or dislocation. No radiopaque foreign body. Impressi on: No plain film evidence of acute fracture or dislocation at 0217 Repor gilbert and signed by: Keely Sanchez M.D. CC: Frederic Brown; Angel Lyle NP Technologist: Inez Renner Trnscrd Date/Time/By: 12/29/2018 (0217) : By: [email or web address] [email or web address] Orig Print D/T: S: 12/29/2018 (0220) PAGE 1 Signed Report
--- OUTSIDE RECORDS SUMMARY | 2020-07-25 23:44 | XMS REPORT | Continuity of Care Document ---
Author Author [facility] t Organization [facility] Address [address] [place] [address] Phone Unavailable Care Team Providers Care Stage Driver Name Role Phone Stephon DEVI Attphys Unavailable [...] of tonsillitis History of tonsillitis Problem Resolved [facility] History of Allergic rhinitis due to pollen History of Allergic rhinitis due to pollen Problem Resolved [facility] History of conjunctivitis History of conjunctivitis Problem Resolved [facility] Obesity (BMI 30-39.9) Obesity (BMI 30-39.9) Problem Active [facility] History of Upper respiratory infection, acute History of Upper respiratory infection, acute Problem Resolved [facility] Nontraumatic rupture of biceps femoris tendon of right lower extremity Nontraumatic rupture of biceps femoris tendon of right lower extremity Problem Active [facility] Erectile dysfunction Erectile dysfunction Problem Active [facility] Umbilical hernia Umbilical hernia Problem Active [facility] Fever and chills Fever and chills Problem Active [facility] GERD without esophagitis GERD without esophagitis Problem Active [facility] Hyperglycemia Hyperglycemia Problem Active [facility] Diabetes mellitus Diabetes mellitus Problem Active [facility] Essential (primary) hypertension Essential (primary) hypertensio n Problem Active [facility] Hypertriglyceridemia Hypertriglyceridemia Problem Active [facility] Mixed hyperlipidemia Mixed hyperlipidemia Problem Active [facility] Influenza vaccination declined Influenza vaccination declined Problem Active [facility] Negative depression screening Negative depression screening Problem Active [facility] Allergies, Adverse Reactions, Alerts Allergy Name Allergy Type Status Severity Reaction(s) Onset Date Inacti ve Date Treating Clinician Comments Source No Known Allergies DA Active U 2018-12-29 00:00:00 [facility] No Known Allergies DA Active U 2014-12-14 00:00:00 [facility] Family History Family Member Diagnosis Comments Start Date Stop Date Source Unknown Family Member Family history of Denial Of Any Significant Medical History Family History [facility] Father Family history of diabetes mellitus [facility] Father Family history of hypertension [facility] Social History Smoking Status Start Date Stop Date Source Never smoked tobacco (finding[facility] Medications Ordered Medication Name Filled Medication Name Start Date Stop Da te Current Medication? Ordering Clinician Indication Dosage Frequency Signature (SIG) Comments Components Source hydroCHLOROthiazide 12.5 MG Oral Capsule hydroCHLOROth iazide 12.5 MG Oral Capsule 2020-07-05 00:00:00 Yes SHERIF STINSON P.A. 1 Q D TAKE [address] [facility] Januvia 100 MG Oral Tablet Januvia 100 MG Oral Tablet 2020-04-08 00:0 0:00 Yes SHERIF STINSON P.A. 1 QD TAKE 1 TABLET DAILY [facility] metFORMIN HCl ER 500 MG Oral Tablet Extended Release 2 4 Hour metFORMIN HCl ER 500 MG Oral Tablet Extended Release 24 Hour 2017-12-07 00:00:00 Yes SHERIF STINSON P.A. 1 Q0.5D TAKE 1 TABLET BY MOUTH TWICE DAILY [facility] Lisinopril 40 MG Oral Tablet Lisinopril 40 MG Oral Tablet 00:00:00 Yes SHERIF STINSON P.A. QD TAKE 1 TABLET BY MOUTH EVERY DAY [facility] Simvastatin 20 MG Oral Tablet Simvastatin 20 MG Oral Tablet 2015 00:00:00 Yes SHERIF STINSON P.A. QD TAKE 1 TABLET BY MOUT H AT BEDTIME [facility] Miriam Aspirin EC Low Dose 81 MG Oral Tablet Delayed Re lease Miriam Aspirin EC Low Dose 81 MG Oral Tablet Delayed Release Yes [facility] Immunizations Ordered Immunization Name Filled Immunization Name Date Status Comments Source Tdap Unknown Completed [facility] Vital Signs Vital Name Observation Time Observation Value Comments Source Systolic blood pressure 2020-07-05 07:54:00 153 mm[Hg] Loca tion: LUE; Position: Sitting [facility] Diastolic blood pressure 2020-07-05 07:54:00 88 mm[Hg] Loc ation: LUE; Position: Sitting [facility] Body height 2020-07-05 07:54:00 70 [in_us] [facility] Weight 2020-07-05 07:54:00 248 [lb_av] [facility] Body mass index (BMI) [Ratio] 2020-07-05 07:54:00 35.58 kg/m2 [facility] Body temperature 2020-07-05 07:54:00 97.4 [degF] Method: Temporal [facility] Heart Rate 2020-07-05 07:54:00 80 /min [facility] Respiratory rate 2020-07-05 07:54:00 14 /min [facility] Systolic blood pressure 2020-04-08 07:43:00 171 mm[Hg] Loca tion: LUE; Position: Sitting [facility] Diastolic blood pressure 2020-04-08 07:43:00 82 mm[Hg] Loc ation: LUE; Position: Sitting [facility] Heart Rate 2020-04-08 07:43:00 73 /min [facility] Systolic blood pressure 2020-04-08 07:42:00 168 mm[Hg] Loca tion: LUE; Position: Sitting [facility] Diastolic blood pressure 2020-04-08 07:42:00 87 mm[Hg] Loc ation: LUE; Position: Sitting [facility] Heart Rate 2020-04-08 07:42:00 67 /min [facility] Body height 2020-04-08 07:42:00 70 [in_us] [facility] Weight 2020-04-08 07:42:00 255 [lb_av] [facility] Body mass index (BMI) [Ratio] 2020-04-08 07:42:00 36.59 kg/m2 [facility] Body temperature 2020-04-08 07:42:00 97.8 [degF] Method: Temporal [facility] Respiratory rate 2020-04-08 07:42:00 15 /min [facility] BP Systolic 2019-12-11 07:46:00 144 mm[Hg] Location: LUE; Positi on: Sitting [facility] BP Diastolic 2019-12-11 07:46:00 81 mm[Hg] Location: LUE; Positi on: Sitting [facility] Heart Rate 2019-12-11 07:46:00 68 /min [facility] BP Systolic 2019-12-11 07:45:00 151 mm[Hg] Location: LUE; Positi on: Sitting [facility] BP Diastolic 2019-12-11 07:45:00 81 mm[Hg] Location: LUE; Positi on: Sitting [facility] Heart Rate 2019-12-11 07:45:00 75 /min [facility] Height 2019-12-11 07:45:00 70 [in_us] [facility] Weight 2019-12-11 07:45:00 250.25 [lb_av] [facility] Body Mass Index Calculated 2019-12-11 07:45:00 35.91 kg/m2 [facility] Temperature 2019-12-11 07:45:00 97.5 [degF] Method: Temporal [facility] Respiration Rate 2019-12-11 07:45:00 16 /min [facility] BP Systolic 2019-09-02 07:51:00 151 mm[Hg] Location: LUE; Positi on: Sitting [facility] BP Diastolic 2019-09-02 07:51:00 85 mm[Hg] Location: LUE; Positi on: Sitting [facility] Heart Rate 2019-09-02 07:51:00 73 /min [facility] Respiration Rate 2019-09-02 07:51:00 16 /min [facility] BP Systolic 2019-09-02 07:48:00 164 mm[Hg] Location: LUE; Positi on: Sitting [facility] BP Diastolic 2019-09-02 07:48:00 102 mm[Hg] Location: LUE; Positi on: Sitting [facility] Heart Rate 2019-09-02 07:48:00 72 /min [facility] Respiration Rate 2019-09-02 07:48:00 16 /min [facility] Height 2019-09-02 07:48:00 70 [in_us] [facility] Weight 2019-09-02 07:48:00 246.375 [lb_av] [facility] Body Mass Index Calculated 2019-09-02 07:48:00 35.35 kg/m2 [facility] Temperature 2019-09-02 07:48:00 97.5 [degF] Method: Temporal [facility] BP Systolic 2019-05-28 08:31:00 152 mm[Hg] Location: LUE; Positi on: Sitting [facility] BP Diastolic 2019-05-28 08:31:00 88 mm[Hg] Location: LUE; Positi on: Sitting [facility] Height 2019-05-28 08:31:00 70 [in_us] [facility] Weight 2019-05-28 08:31:00 245 [lb_av] [facility] Body Mass Index Calculated 2019-05-28 08:31:00 35.15 kg/m2 [facility] Temperature 2019-05-28 08:31:00 97.2 [degF] Method: Temporal [facility] Heart Rate 2019-05-28 08:31:00 67 /min [facility] Respiration Rate 2019-05-28 08:31:00 16 /min [facility] BP Systolic 2019-02-14 08:43:00 133 mm[Hg] Location: LUE; Positi on: Sitting [facility] BP Diastolic 2019-02-14 08:43:00 75 mm[Hg] Location: LUE; Positi on: Sitting [facility] Height 2019-02-14 08:43:00 70 [in_us] [facility] Weight 2019-02-14 08:43:00 253.5 [lb_av] [facility] Body Mass Index Calculated 2019-02-14 08:43:00 36.37 kg/m2 [facility] Temperature 2019-02-14 08:43:00 97.4 [degF] Method: Temporal [facility] Heart Rate 2019-02-14 08:43:00 76 /min Location: L Brachial Artery; [facility] Respiration Rate 2019-02-14 08:43:00 16 /min [facility] Procedures Procedure Date / Time Performed Performing Clinician Sour e [O] Hemoglobin A1c (in office) 2020-04-08 00:00:00 [facility] [Q] LIPID PANEL WITH REFLEX TO DIRECT LDL 2020-04-08 00:00:[address] [facility] [QL] CMP W/EGFR 2020-04-08 00:00:00 [facility] [QL] CREATINE KINASE, TOTAL 2020-04-08 00:00:00 [facility] [QL] TSH, 3RD GENERATION W/REFLEX TO FT4 2020-04-08 00:00:00 [facility] [QLH] CMP W/EGFR 2019-12-11 00:00:00 [facility] [QL] HEMOGLOBIN A1c 2019-12-11 00:00:00 [facility] [QL] MICROALBUMIN, RANDOM URINE (W/CREATININE) 2019-12-11 00:00 :00 [facility] [Q] LIPID PANEL WITH REFLEX TO DIRECT LDL 2019-12-11 00:00:00 [facility] [QL] CREATINE KINASE, TOTAL 2019-12-11 00:00:00 [facility] [QL] TSH, 3RD GENERATION W/REFLEX TO FT4 2019-12-11 00:00:00 [facility] [Q] LIPID PANEL WITH REFLEX TO DIRECT LDL 2019-09-02 00:00:[address] [facility] [QLH] CMP W/EGFR 2019-09-02 00:00:[address] [facility] [QLH] TSH, 3RD GENERATION W/REFLEX TO FT4 2019-09-02 00:00:00 [facility] [QL] CREATINE KINASE, TOTAL 2019-09-02 00:00:00 [facility] [QL] MICROALBUMIN, RANDOM URINE (W/CREATININE) 2019-09-02 00:00 :00 [facility] [QL] TSH, 3RD GENERATION W/REFLEX TO FT4 2019-02-14 00:00:[address] [facility] [QLH] CMP W/EGFR 2019-02-14 00:00:00 [facility] [[facility]] CBC (INCLUDES DIFF/PLT) 2019-02-14 00:00:00 [facility] [[facility]] HEMOGLOBIN A1c 2019-02-14 00:00:00 [facility] [[facility]] MICROALBUMIN, RANDOM URINE (W/CREATININE) 2019-02-14 00:00 :00 [facility] [] LIPID PANEL WITH REFLEX TO DIRECT LDL 2019-02-14 00:00:00 [facility] Plan of Care Planned Activity Planned Date Details Comments Source Future Appointment 2020-10-04 07:30:[address] [facility] Encounters Start Date/Time End Date/Time Encounter Type Admission Type Attendi [facility] Care Department Encounter ID Source 2020-07-05 07:30:00 2020-07-05 07:30:00 Appointment; SHERIF STINSON P.A. CAMPOS, BERTHA PVikkiAVikki [facility] [id number] [facility] 2020-04-08 07:30:00 2020-04-08 07:30:00 Appointment; SHERIF STINSON P.A. CAMPOS, BERTHA PVikkiAVikki [facility], [id number] [facility] 2019-12-11 07:30:00 2019-12-11 07:30:00 Appointment; SHERIF STINSON P.A. CAMPOS, BERTHA P.AVikki [facility], [address] [id number] [facility] 2019-09-02 07:30:00 2019-09-02 07:30:00 Appointment; SHERIF STINSON P.A. CAMPOS, BERTHA, P.AVikki [facility] [id number] [facility] 2019-05-28 08:15:00 2019-05-28 08:15:00 Appointment; SHERIF STINSON P.A. CAMPOS, BERTHA, PVikkiAVikki [facility], [address] [id number] [facility] 2019-02-14 08:30:00 2019-02-14 08:30:00 Appointment; PRASANNA PAIZ A PRN BECK, SHERI, APRN [facility] [id number] [facility] 2018-08-15 07:45:00 2018-08-15 07:45:00 Appointment; SHERIF STINSON P.A. CAMPOS, BERTHA PVikkiAVikki [facility]TP [id number] [facility] 2018-05-15 07:45:00 2018-05-15 07:45:00 Appointment; SHERIF STINSON P.A. CAMPOS, BERTHA, P.A. UTP UTP [id number] [facility] 2017-12-07 14:30:00 2017-12-07 14:30:00 Appointment; SHERIF STINSON P.A. CAMPOS, BERTHA, P.AVikki AGUILER[facility] UTP [id number] [facility] 2017-11-01 14:00:00 2017-11-01 14:00:00 Appointment; ISAIAS SOLANO M.D. SATTAR, BEENA, M.D. [facility] UTP [id number] [facility] 2017-10-29 10:45:00 2017-10-29 10:45:00 Appointment; GEO CHAND M.D. BORTOLOTTI, JULIE, M.D. [facility] UTP [id number] [facility] 2017-08-31 14:45:00 2017-08-31 14:45:00 Appointment; SHERIF STINSON P.A. CAMPOS, BERTHA, P.A. [facility]LE UTP [id number] [facility] 2017-07-27 09:15:00 2017-07-27 09:15:00 Appointment; MEREDITH PHILLIPS D.O. EKHAESE, OBONORUMA, D.O. UTP UTP [id number] [facility] 2017-07-02 15:00:00 2017-07-02 15:00:00 Appointment; CURRY ANDINO M.D. VAZQUEZ, NOEMI, M.D. [facility] UTP [id number] [facility] 2017-06-27 10:00:00 2017-06-27 10:00:00 Appointment; SHERIF STINSON P.A. CAMPOS, BERTHA, P.AVikki UTP UTP [id number] [facility] 2017-06-06 14:00:00 2017-06-06 14:00:00 Appointment; MEREDITH PHILLIPS D.O. EKHAESE, OBONORUMA, D.O. UTP UTP [id number] [facility] 2017-04-06 08:00:00 2017-04-06 08:00:00 Appointment; SHREIF STINSON P.A. CAMPOS, BERTHA, P.A. UTP UTP [id number] [facility] Results Test Description Test Time Test Comments Results Result Comments Source CT ABDOMEN/PELVIS WO 2020-07-25 22:31:00 [place] [address] Patient Name: HOLLY LEYVA MR #: [id number] : 1970 Age/Sex: 49/M Req #: [id number] Adm Physician: Ordered by: MOHAN DEVI MD Report #: [id number] Location: ER Room/Bed: Procedure: [id number] CT/CT ABDOMEN/PELVIS WO Exam Date: 07/25/20 Exam Time: 2204 REPORT STATUS: Signed EXAM: CT Abdomen and Pelvis WITHOUT contrast INDICATION: STONE PROTOCOL [id number] COMPARISON: None. TECHNIQUE: Abdomen and pelvis were [...] (test code = 4548-4) 7.[address] [facility][Q] LIPID PANEL WITH REFLEX TO [...] Lipidol. 2015;9:129-169. LDL-CHOLESTEROL; Normal (test code = 99230-0) 90 {MG/DL MAKENZIE} N Reference range: <100 Desirable range <100 mg/dL for primary prevention; <70 mg/dL for patients with CHD or diabetic patients with > or = 2 CHD risk factors. LDL-C is now calculated using the Jason calculation, which is a validated novel method providing better accuracy than the Friedewald equation in the estimation of LDL-C. Braden SS et al. GLADIS. 2013;310(19): 5879-7277 (http ://education.[employer]/faq/LGF972) CHOL/HDLC RATIO (test code = CHOL/HDLC RATIO) 4.2 {CALC} <5.0 N NON HDL CHOLESTEROL (test code = NON HDL CHOLESTEROL) 126 {MG/DL C AL} <130 N For patients with diabetes plus 1 major ASCVD risk factor, treating to a non-HDL-C goal of <100 mg/dL (LDL-C of <70 mg/dL) is considered a therapeutic option. [facility][QL] CMP [id number] 08:38:00* Test Item Value Reference Range Interpretation [...] NON- (test code = eGFR NON-TINO N ARMENIAN) 90 {ML/MIN/1.7} > OR = 60 N [...] N BILIRUBIN, TOTAL; Normal (test code = 77397-6) 0.5 mg/dl 0.2-1.2 N ALKALINE PHSPHATASE (test code = ALKALINE PHSPHATASE) 73 u/l 36-130 N AST; Normal (test code = 1916-6) 25 u/l 10-40 N ALT; Normal (test code = 1742-6) 38 u/l 9-[address] [facility][QL] CREATINE KINASE, [id number] 08:38:00* Test Item Value Reference Range Interpretation Comments CREATINE KINASE, TOTAL (test code = CREATINE KINASE, TOTAL) 61 u/l 44-[address] [facility][QL] TSH, 3RD GENERATION W/REFLEX TO [id number] 08:38:00* Test Item Value Reference Range Interpretation Comments TSH, 3RD GENERATION W/REFLEX TO FT4 (eboni t code = TSH, 3RD GENERATION W/REFLEX TO FT4) 2.00 {MIU/L} 0.40-4.[address] [facility][O] Hemoglobin A1c (in office)2020-04-08 07:53:00 * Test Item Value Reference Range Interpretation Comments HEMOGLOBIN A1c; Abnormal (test code = 4548-4) 8.[address] [facility][O] Hemoglobin A1c (in office)2019-12-11 10:10:00 * Test Item Value Reference Range Interpretation Comments HEMOGLOBIN A1c; Abnormal (test code = 4548-4) 6.[address] [facility][] LIPID PANEL WITH REFLEX TO [...] LDL-CHOLESTEROL; Above High Threshold (test code = 74139-5) 108 {MG/DL MAKENZIE} Reference range: <100 Desirable range <1 00 mg/dL for primary prevention; <70 mg/dL for patients with CHD or diabetic patients with > or = 2 CHD risk factors. LDL-C is now calculated using the Braden-Contreras calculation, which is a validated novel method providing better accuracy than the Friedewald equation in the estimation of LDL-C. Braden SS et al. GLADIS. 2013;310(19): 2088-3120 (http ://education.[employer].hyaqu/faq/RJQ145) CHOL/HDLC RATIO (test code = CHOL/HDLC RATIO) 4.8 {CALC} <5.0 N NON HDL CHOLESTEROL (test code = NON HDL CHOLESTEROL) 144 {MG/DL C AL} <130 For patients with diabetes plus 1 major ASCVD risk factor, treating to a non-HDL-C goal of <100 mg/dL (LDL-C of <70 mg/dL) is considered a therapeutic option. [facility]] MICROALBUMIN, RANDOM URINE (W/CREATININE) 2019-12-11 09:01:00* Test [...] a patient to bewithin a diagnostic category. [facility]] CMP [id number] 09:01:00* Test Item Value Reference Range Interpretation [...] NON- (test code = eGFR NON-TINO N ARMENIAN) 88 {ML/MIN/1.7} > OR = 60 N [...] N BILIRUBIN, TOTAL; Normal (test code = 42023-8) 0.5 mg/dl 0.2-1.2 N ALKALINE PHSPHATASE (test code = ALKALINE PHSPHATASE) 67 u/l 40-115 N AST; Normal (test code = 1916-6) 18 u/l 10-40 N ALT; Normal (test code = 1742-6) 31 u/l 9-[address] [facility]] CREATINE KINASE, [id number] 09:01:00* Test Item Value Reference Range Interpretation Comments CREATINE KINASE, TOTAL (test code = CREATINE KINASE, TOTAL) 44 u/l 44-[address] [facility]] TSH, 3RD GENERATION W/REFLEX TO FT4 2019-12-11 09:01:00* Test Item Value Reference Range Interpretation Comments TSH, 3RD GENERATION W/REFLEX TO FT4 (eboni t code = TSH, 3RD GENERATION W/REFLEX TO FT4) 1.52 {MIU/L} 0.40-4.50 N [facility]] HEMOGLOBIN [id number] 09:01:00* Test Item Value Reference Range Interpretation Comments HEMOGLOBIN A1c; Above High Threshold (test code = 4548-4) 7.2 {% of total} <5.7 For someone without known diabetes, a he moglobin Q5fefbdu of 6.5% or greater indicates that they [...] A1c for diagnosis of diabetes for children. [facility][O] Hemoglobin A1c (in office)2019-09-02 09:59:00 * Test Item Value Reference Range Interpretation Comments HEMOGLOBIN A1c; Abnormal (test code = 4548-4) 6.[address] [facility][O] Hemoglobin A1c (in office)2019-05-28 08:40:00 * Test Item Value Reference Range Interpretation Comments HEMOGLOBIN A1c (test code = 4548-4) 6.3 [facility][] LIPID PANEL WITH REFLEX TO DIRECT LDL 2019-02-14 09:36:00* Test Item Value Reference Range Interpretation Comments CHOLESTEROL, TOTAL; Normal (test code = 2093-3) 172 mg/dl <200 N HDL CHOLESTEROL; Below Low Threshold (test code = 2085-9) 38 mg/dl >40 TRIGLYCERIDES; Above High Threshold (test code = 2571-8) 308 mg/dl <150 LDL-CHOLESTEROL; Normal (test code = 96874-2) 93 {MG/DL MAKENZIE} N Reference range: <100 Desirable range <100 mg/dL for primary prevention; <70 mg/dL for patients with CHD or diabetic patients with > or = 2 CHD risk factors. LDL-C is now calculated using the Braden-Contreras calculation, which is a validated novel method providing better accuracy than the Friedewald equation in the estimation of LDL-C. Braden SS et al. GLADIS. 2013;310(35): 3179-5477 (http ://[employer] PREVENT[employer] MEDICINE/faq/IWE980) CHOL/HDLC RATIO (test code = CHOL/HDLC RATIO) 4.5 {CALC} <5.0 N NON HDL CHOLESTEROL (test code = NON HDL CHOLESTEROL) 134 {MG/DL C AL} <130 For patients with diabetes plus 1 major ASCVD risk factor, treating to a non-HDL-C goal of <100 mg/dL (LDL-C of <70 mg/dL) is considered a therapeutic option. [facility]] MICROALBUMIN, RANDOM URINE (W/CREATININE) 2019-02-14 09:36:00* Test [...] a patient to bewithin a diagnostic category. [facility]] CMP [id number] 09:36:00* Test Item Value Reference Range Interpretation [...] NON- (test code = eGFR NON-TINO N ARMENIAN) 93 {ML/MIN/1.7} > OR = 60 N [...] N BILIRUBIN, TOTAL; Normal (test code = 26089-2) 0.5 mg/dl 0.2-1.2 N ALKALINE PHSPHATASE (test code = ALKALINE PHSPHATASE) 68 u/l 40-115 N AST; Normal (test code = 1916-6) 16 u/l 10-40 N ALT; Normal (test code = 1742-6) 30 u/l 9-[address] [facility]] CBC (INCLUDES DIFF/PLT)2019-02-14 09:36:00* Test Item Value Reference Range Interpretation Comments WHITE BLOOD CELL COUNT (test code = WHITE BLOOD CELL COUNT) 5.4 {Thousand/u} 3.8-10.8 N RED BLOOD CELL COUNT (test code = RED BLOOD CELL COUNT) 4.31 {Million/uL} 4.20-5.80 N HEMAGLOBIN; Normal (test code = 93634-4) 13.5 g/dl 13.2-17.1 N HEMATOCRIT; Normal (test code = 4544-3) 38.8 % 38.5-50.0 N MCV; Normal (test code = 787-2) 90.0 fL 80.0-100.0 N MCHC; Normal (test code = 07383-0) 34.8 g/dl 32.0-36.0 N RDW; Normal (test code = 788-0) 12.0 % 11.0-15.0 N PLATELET COUNT; Normal (test code = 777-3) 219 {Thousand/u} 140-400 N MPV; Normal (test code = 85315-9) 11.3 fL 7.5-12.5 N ABSOLUTE NEUTROPHILS (test code = ABSOLUTE NEUTROPHILS) 2862 {cells/uL} 5843-0701 N ABSOLUTE LYMPHOCYTES (test code = ABSOLUTE [...] % N MONOCYTES; Normal (test code = 47467-8) 7.6 % N EOSINOPHILS; Normal (test code = 59555-9) 2.0 % N BASOPHILS; Normal (test code = 98715-2) 0.6 % N University [facility]] TSH, 3RD GENERATION W/REFLEX TO FT4 2019-02-14 09:36:00* Test Item Value Reference Range Interpretation Comments TSH, 3RD GENERATION W/REFLEX TO FT4 (eboni t code = TSH, 3RD GENERATION W/REFLEX TO FT4) 2.01 {MIU/L} 0.40-4.[address] [facility]] HEMOGLOBIN [id number] 09:36:00* Test Item Value Reference Range Interpretation Comments HEMOGLOBIN A1c; Above High Threshold (test code = 4548-4) 7.3 {% of total} <5.7 For someone without known diabetes, a he moglobin M2qkdysq of 6.5% or greater indicates that they [...] A1c for diagnosis of diabetes for children. [facility]- XR FINGER(S) 2+V [id number] 02:17:00 FAX: Toni Desir MD [phone] [place]: St: REG FAX: Angel Lyle NP [phone] Name: HOLLY LEYVA [facility] : 1970 Age/S: 48/M [address] [facility] Unit #: [id number] Loc: [place] [address] Phys: Angel Lyle NP Acct: [id number] Dis Date: Status: REG ER PHONE #: [phone] Exam Date: 12/29/2018 0208 FAX #: [phone] Reason: LAC FINGER EXAMS: CPT CODE: [id number] XR FINGER(S) 2+V LT [id number] - XR FINGER(S) 2+V LT, 12/29/2018 1:16 [...]
[2020-07-25] MEDS ORDERED: ONDANSETRON HCL INJ 2MG/ML 2ML 2 MG/ML VIAL IV PRN (23:45)
[2020-07-26] VITALS (9 sets, daily range): BP systolic 124–161; BP diastolic 74–91
[2020-07-26] MEDS: HYDROMORPHONE 1MG/1ML INJ IV PRN ×3 (00:30→13:32)
[2020-07-26] MEDS ORDERED: MELATONIN 5 MG TABLET PO PRN (00:30)
[2020-07-26] MEDS: CEFTRIAXONE SOD 1 GM/NS 50 ML 50 ML IV SCH (01:00)
[2020-07-26] MEDS ORDERED: JANUVIA100 MG PO (01:20)
[2020-07-26] MEDS ORDERED: SIMVASTATIN20 MG PO (01:20)
[2020-07-26] MEDS ORDERED: HYDROCHLOROTHIA25 MG (01:20)
[2020-07-26] MEDS ORDERED: METFORMIN HCL500 M2 PO (01:20)
[2020-07-26] MEDS ORDERED: LISINOPRIL10 MG PO (01:20)
[2020-07-26] MEDS: SODIUM CHLORIDE 0.9% 1000ML 1,000 ML IV SCH ×3 (01:21→20:42)
--- NOTE | 2020-07-26 02:25 | NUR ---
PT IS TRANSFERRED FROM ER .PT IS AOX3 RESPIRATIONS ARE EVEN AND UNLABORED SKIN WARM AND O THE ENVDRY TO TOUCH,LEFT AC 20 G NS AT 100CC/HR PT IS NPO .PT C/O PAIN .ORIENTED THE PT TO THE ENVIRONMENT ASSESSMENTS DONE GIVEN ORDERED PAIN MEDICATION,CALL LIGHT WITH IN REACH ,CONTINUE TO MONITOR
--- NOTE | 2020-07-26 04:55 | NUR ---
PT RESTED DURING THE NIGHT C/O PAIN AND GIVEN ORDERED PAIN MEDICATION ,CALL LIGHT WITH IN REACH ,CONTINUE TO MONITOR
[2020-07-26 05:54] LABS: BASOPHILS % 0.2 % (0.0-1.0); EOSINOPHILS % 0.2 % (0.0-6.0); HEMATOCRIT 37.5 % (38.2-49.6); HEMOGLOBIN 13.2 g/dL (14.0-18.0); LYMPHOCYTES # (AUTO) 1.7 (1.0-3.2); MEAN CORPUSCULAR HEMOGLOBIN 30.6 pg (28-32); MEAN CORPUSCULAR HGB CONC 35.2 g/dL (31-35); MONOCYTES # (AUTO) 0.9 (0.2-0.8); MONOCYTES % 8.5 % (4.4-11.3); NEUTROPHILS # (AUTO) 7.7 (2.1-6.9); NEUTROPHILS % 74.3 % (38.7-80.0); PLATELET COUNT 180 x10e3/uL (140-360); RED BLOOD COUNT 4.31 x10e6/uL (4.3-5.7); RED CELL DISTRIBUTION WIDTH 11.8 % (11.7-14.4)
[2020-07-26 06:12] LABS: CALCIUM 8.8 mg/dL (8.4-10.2); CREATININE, SERUM 1.5 mg/dL (0.72-1.25)
[2020-07-26] MEDS ORDERED: ACETAMINOPHEN/CODEINE 300MG - 30MG TAB PO PRN (11:30)
--- NOTE | 2020-07-26 12:05 | Consultation ---
DATE OF CONSULTATION: 07/26/2020 Urology Consultation. REASON FOR CONSULTATION: Obstructive uropathy. HISTORY OF PRESENT ILLNESS: Zechariah Pratt is a 49-year-old man with no previous urological history. He denies previous hematuria, dysuria, urinary tract infection, urolithiasis, denies ever seeing urologist. The patient has severe right-sided flank pain, radiating to the right lower quadrant. He also noted his urine was dark. His pain was severe. He reported to the emergency room where he was evaluated and subsequently admitted. The patient has been straining his urine since he has been in the hospital, was yet to pass his stone. He has not really been out of bed yet. PAST MEDICAL/SURGICAL HISTORY: 1. Status post umbilical herniorrhaphy at [facility]. 2. Hypertension. 3. Diabetes mellitus. 4. Hypercholesterolemia. FAMILY HISTORY: Noncontributory to the urological problems. ALLERGIES: NONE KNOWN. CURRENT MEDICATIONS: Please refer to the MAR. REVIEW OF SYSTEMS: Discussed as above in history of present illness, past medical history, otherwise negative for all systems. PHYSICAL EXAMINATION: GENERAL: Healthy-appearing 49-year-old male lying in bed, in no apparent distress. VITAL SIGNS: He is currently afebrile. Vitals are currently stable. ABDOMEN: Soft and nondistended. He is tender in the right lower quadrant and tender in the right flank with right-sided costovertebral angle tenderness. Kidneys not palpable without hepatosplenomegaly. The patient is obese. GENITOURINARY: Testes descended bilaterally. Testes and epididymides bilaterally palpably normal. The patient has uncircumcised male phallus with normal meatus without any lesion. Digital rectal examination is deferred at the present time. For the remaining physical examination systems, please refer to the history and physical as well as the ERT sheet. LABORATORY STUDIES: [place] [address], hemoglobin 13.2, platelets 180,000. The patient's creatinine is elevated at 1.47. Sodium is slightly low at 135, and calcium is normal at 8.8. Urinalysis significant for microhematuria as well as glycosuria. The Coronavirus test is negative. Urine culture is pending. CT scan of the abdomen and pelvis reveals right hydroureteronephrosis down to a 3 mm stone. The stone is several centimeters from the ureterovesical junction. ASSESSMENT: 1. Right renal colic. 2. Gross hematuria. 3. Right ureterolithiasis. 4. Right hydroureteronephrosis due to stone. 5. Right renal cyst noted on CT. 6. Anemia. 7. Obesity. 8. Presumably acute renal failure. 9. Hyponatremia. 10. Glycosuria. PLAN: 1. IV hydration. 2. IV analgesia. 3. IV antibiotics. 4. Ambulation. 5. We will order KUB to see if we can note any followup of the stone comparison to the CT. This stone is small, may not be visible on KUB in the region of the pelvis. 6. Should the patient fail to pass his stone, we will take him to the operating room for ureteroscopy, stone manipulation, and insertion of stent. 7. The patient needs ongoing urological followup for metabolic stone workup and stone prevention regimen. Thank you much for involving us in care of your patient. We will be happy to follow along with you as well as an outpatient. Emmanuel Campos MD [place]/MODL /[id number] cc: Toni Brown
--- NOTE | 2020-07-26 13:02 | Diagnostic Imaging Report ---
EXAM: Abdomen Radiograph 1 View(s) INDICATION: follow up stone and compare to CT COMPARISON: CT of the abdomen/pelvis on 07/25/2020. FINDINGS: No abnormalities in the lower chest. No lines or tubes. Normal volume of stool in the colon. No dilated loops of small bowel. No abnormal abdominal calcifications. Distal right ureteral stone seen on recent CT of the abdomen and pelvis is not visualized by plain radiograph, likely due to small. No abnormal soft tissue masses. No pneumoperitoneum. No acute osseous abnormality. Mild degenerative changes in the lumbar spine and pelvis. IMPRESSION: Distal right ureteral stone seen on recent CT of the abdomen/pelvis is likely too small to be visualized by plain radiograph. Signed by: John Burgess MD on 07/26/2020 12:59 PM
[2020-07-26] MEDS ORDERED: HYDROMORPHONE 1MG/1ML INJ IV PRN (14:45)
[2020-07-26] MEDS ORDERED: ONDANSETRON HCL INJ 2MG/ML 2ML 2 MG/ML VIAL IV PRN (14:45)
[2020-07-26] MEDS ORDERED: ACETAMINOPHEN 325 MG TAB PO PRN (14:45)
[2020-07-26] MEDS ORDERED: DEXTROSE 50% SYRINGE 50 ML IV PRN (16:00)
[2020-07-26] MEDS: INSULIN LISPRO 100 UNIT/1 ML 3ML VIAL SQ SCH ×2 (16:30→19:49)
--- NOTE | 2020-07-26 19:00 | NUR ---
RECEIVED PATIENT IN BEDSIDE SHIFT REPORT. PATIENT RESTING IN BED AT THIS TIME, NO PAIN REPORTED. NO S&S OF DISTRESS NOTED. PATIENT GETTING UP TO WALK IN HALLWAY AT THIS TIME. STEADY GAIT NOTED. BED LOCKED IN LOWEST POSITION, SIDE RAILS UPX2, CALL LIGHT IN REACH.
[2020-07-26] MEDS: SIMVASTATIN 20 MG TAB PO SCH (20:42)
[2020-07-27] VITALS (8 sets, daily range): BP systolic 131–160; BP diastolic 62–88
[2020-07-27] MEDS: CEFTRIAXONE SOD 1 GM/NS 50 ML 50 ML IV SCH ×2 (00:16→23:55)
--- NOTE | 2020-07-27 01:17 | History and Physical ---
CHIEF COMPLAINT: Right-sided flank pain. HISTORY OF PRESENT ILLNESS: The patient was seen and evaluated approximately at 1 p.m. this afternoon. This is a 49-year-old male, morbidly obese, history of type 2 diabetes, hypertension. He presented to the ER with complaints of right-sided flank pain, that began since yesterday. He denies any hematuria, dysuria, urinary tract infection. Urolithiasis in the past. He has never seen a urologist before. He has never had any renal stones before. The patient is seen and evaluated at bedside on the medical floor. He is currently doing well with no other issues at this time. REVIEW OF SYSTEMS: Pertinent positives; right-sided flank pain. The rest of 14-point review of systems are reviewed with the patient and are negative. ALLERGIES: NO KNOWN DRUG ALLERGIES. HOME MEDICATIONS: He takes hydrochlorothiazide, lisinopril, metformin, Januvia, simvastatin. PAST MEDICAL HISTORY: Type 2 diabetes, hypertension, hyperlipidemia, morbidly obese. PAST SURGICAL HISTORY: Status post umbilical herniorrhaphy at [facility]. FAMILY HISTORY: None. SOCIAL HISTORY: No drugs. No alcohol. Does not smoke. Good social support. PHYSICAL EXAMINATION: VITAL SIGNS: Temperature is 100, pulse 77, respiratory rate is 20, blood pressure 124/74, pulse ox is 100% on room air. GENERAL: In no acute distress. Alert and oriented x3. Cooperative on examination. HEENT: Head is normocephalic and atraumatic. Eyes; pupils are equal, round, reactive to light bilaterally. PULMONARY: Clear to auscultation bilaterally. No wheezing, no rales, no rhonchi, no crackles appreciated. CARDIOVASCULAR: Positive S1 and S2. No murmurs, rubs, or gallops appreciated. ABDOMEN: Soft, nondistended, nontender to palpation. Bowel sounds present. MUSCULOSKELETAL: Strength 5/5 throughout. No evidence of muscle deficits on examination. No weakness appreciated. NEUROLOGICAL: Cranial nerves II through XII grossly intact. No evidence of any neurological deficits on exam. SKIN: Intact. Warm to touch. Good cap refill. PSYCHIATRIC: Normal affect and mood. EXTREMITIES: No edema. Good range of motion throughout. LABORATORY FINDINGS: Show white count 10.3, hemoglobin 13, hematocrit is 37.5, and platelets of 180. Chemistry; sodium 135, potassium 4, chloride 102, bicarb 20, anion gap is 17, BUN is 16, creatinine is 1.5, calcium is 8.8. Urinalysis; 2+ blood, 1+ glucose. SEROLOGY: Coronavirus is pending. MICROBIOLOGY: Urine culture is pending. IMAGING STUDIES: CT abdomen and pelvis shows a 3 mm distal right ureteral obstructive calculus with mild right hydroureteronephrosis with right perinephric and periureteral fat stranding. Superimposed urinary tract infection cannot be excluded. Suspected right renal inferior pole cyst. Hepatic steatosis. Right iliac lytic lesion with sclerotic border, probably benign. Abdominal x-ray, distal right ureteral stone seen on CT is likely too small to be visualized by plain radiographs. IMPRESSION: 1. Right-sided flank pain with obstructive uropathy from underlying renal stone. 2. Type 2 diabetes. 3. Morbidly obese. 4. Hypertension. PLAN: At this time, CT imaging consistent with obstructive uropathy. Monitor urine cultures. IV antibiotics. Pain control. Urology consultation. Plain x-ray shows no evidence of any obstructive stone. Follow Urology recommendations. Resume same home medications, but hold lisinopril, hydrochlorothiazide as well as metformin due to underlying acute kidney injury. Hold Lovenox right now as he does have some hematuria from the underlying renal stone. Put on SCDs. Get a.m. labs. Await final recommendations by Urology. MD SONNY Mae/RYANNE /[id number]
[2020-07-27 04:57] LABS: BASOPHILS % 0.3 % (0.0-1.0); EOSINOPHILS # (AUTO) 0.1 (0.0-0.4); EOSINOPHILS % 1.6 % (0.0-6.0); HEMATOCRIT 35.6 % (38.2-49.6); HEMOGLOBIN 12.3 g/dL (14.0-18.0); LYMPHOCYTES # (AUTO) 2.4 (1.0-3.2); LYMPHOCYTES % 29.6 % (18.0-39.1); MEAN CORPUSCULAR HEMOGLOBIN 30.4 pg (28-32); MEAN CORPUSCULAR HGB CONC 34.6 g/dL (31-35); MEAN CORPUSCULAR VOLUME 88.1 fL (81-99); MONOCYTES # (AUTO) 0.8 (0.2-0.8); MONOCYTES % 10.1 % (4.4-11.3); NEUTROPHILS # (AUTO) 4.6 (2.1-6.9); NEUTROPHILS % 57.5 % (38.7-80.0); PLATELET COUNT 167 x10e3/uL (140-360); RED BLOOD COUNT 4.04 x10e6/uL (4.3-5.7); RED CELL DISTRIBUTION WIDTH 11.9 % (11.7-14.4)
[2020-07-27 05:17] LABS: CALCIUM 8.4 mg/dL (8.4-10.2); CREATININE, SERUM 1.39 mg/dL (0.72-1.25)
[2020-07-27] MEDS: SODIUM CHLORIDE 0.9% 1000ML 1,000 ML IV SCH ×2 (06:33→16:15)
[2020-07-27] MEDS: INSULIN LISPRO 100 UNIT/1 ML 3ML VIAL SQ SCH ×4 (07:30→21:00)
[2020-07-27] MEDS: SITAGLIPTIN 100 MG TAB PO SCH (08:25)
--- NOTE | 2020-07-27 09:39 | Diagnostic Imaging Report ---
EXAM: CT Abdomen and Pelvis WITHOUT intravenous contrast INDICATION: Renal calculus COMPARISON: CT abdomen and pelvis of 07/25/2020 TECHNIQUE: Abdomen and pelvis were scanned utilizing a multidetector helical scanner from the lung base to the pubic symphysis without administration of IV contrast. Coronal and sagittal reformations were obtained. IV CONTRAST: None ORAL CONTRAST: Water COMPLICATIONS: None RADIATION DOSE: Total DLP: 830 mGy*cm Dose modulation, iterative reconstruction, and/or weight based adjustment of the mA/kV was utilized to reduce the radiation dose to as low as reasonably achievable. FINDINGS: LOWER THORAX: Normal. HEPATOBILIARY: Diffuse hepatic steatosis. No focal liver lesion. Unremarkable gallbladder. SPLEEN: No splenomegaly. PANCREAS: No focal masses or ductal dilatation. ADRENALS: No adrenal nodules. KIDNEYS/URETERS: 3 mm right distal ureteral calculus is now situated at the right ureterovesical junction, slightly more distal compared to the prior CT of 07/25/2020. No significant interval change in mild associated hydroureteronephrosis and right perinephric fat stranding. Unchanged right lower pole renal cyst. No solid renal mass lesions. PELVIC ORGANS/BLADDER: Unremarkable. PERITONEUM / RETROPERITONEUM: No free air or fluid. LYMPH NODES: No lymphadenopathy. VESSELS: Unremarkable. GI TRACT: No distention or wall thickening. BONES AND SOFT TISSUES: No acute osseous injury. Unchanged well-corticated lucent right iliac bone lesion. IMPRESSION: 3 mm right distal ureteral calculus has moved slightly more distally compared to the prior CT of 07/25/2020 and is now situated at the right ureterovesical junction. No significant interval change in associated mild hydroureteronephrosis and perinephric fat stranding. Signed by: Veronica Edmond MD on 07/27/2020 9:36 AM
--- NOTE | 2020-07-27 20:45 | NUR ---
PATIENT PASSED KIDNEY STONE AT THIS TIME, REPORTED NO PAIN DURING PASSING. STONE COLLECTED IN SPECIMEN CUP AND SENT TO LAB.
[2020-07-27] MEDS: SIMVASTATIN 20 MG TAB PO SCH (20:48)
--- NOTE | 2020-07-27 20:51 | NUR ---
PAGED MD RAMIREZ AT THIS TIME TO INFORM OF KIDNEY STONE PASSING. AWAITING CALL BACK.
--- NOTE | 2020-07-27 21:14 | NUR ---
SPOKE WITH MD RAMIREZ, NEW ORDERS ENTERED. RECHECK LABS IN AM.
[2020-07-27] MEDS ORDERED: ONDANSETRON HCL 4 MG ORAL DISINTEGRATING TAB PO PRN (21:15)
[2020-07-28] VITALS: BP 143/78
--- NOTE | 2020-07-28 01:42 | Progress Note ---
DATE: 07/27/2020 Medicine Progress Note SUBJECTIVE: The patient doing well today with no complaints. He has very minimal pain. He had a repeat CT scan, which does show the 3 mm stone with no change. PHYSICAL EXAMINATION: VITAL SIGNS: Temperature is 98.3, pulse 77, respiratory rate 17, blood pressure is 148/60, pulse ox 100% on room air. GENERAL: Not in acute distress. Alert and oriented x3. PULMONARY: Clear to auscultation bilaterally. No wheezing, no rales, no rhonchi, no crackles appreciated. CARDIOVASCULAR: Positive S1 and S2. No murmurs, rubs, or gallops appreciated. ABDOMEN: Soft, nondistended, and nontender to palpation. Bowel sounds present. MUSCULOSKELETAL: Strength is 5/5 throughout. NEUROLOGIC: No evidence of any neurological deficits on examination. SKIN: Intact. Warm to touch. Good cap refill. LABORATORY DATA: Labs show white count 12.9, hemoglobin 12, hematocrit 35.6, platelets of 167. Chemistry; sodium 137, potassium 4, chloride 106, bicarb 19, anion gap is MICROBIOLOGY: Urine cultures final shows no growth. IMAGING STUDIES: CT abdomen and pelvis is a repeat study performed today, shows 3 mm right distal ureteral calculus more distally compared to prior CT. Situated at the right ureterovesical junction. There is some mild hydronephrosis and perinephric stranding. IMPRESSION: 1. Right-sided flank pain with obstructive uropathy with underlying renal stone with mild hydronephrosis. 2. Type 2 diabetes. 3. Morbidly obese. 4. Hypertension. PLAN: At this time, repeat CT imaging consistent with obstructive stone in the distal right ureter. He still has mild hydronephrosis. Urine cultures were negative. Continue with IV antibiotic therapy. We will monitor his blood pressures closely. He is on SCDs for DVT prophylaxis. Urology is following. Await final recommendations by Urology. Possibly discharge tomorrow. MD SONNY Mae/RYANNE /[id number]
[2020-07-28] MEDS: SODIUM CHLORIDE 0.9% 1000ML 1,000 ML IV SCH ×2 (02:18→11:45)
[2020-07-28 04:00] VITALS: BP 141/79
[2020-07-28 05:14] LABS: BASOPHILS % 0.3 % (0.0-1.0); EOSINOPHILS # (AUTO) 0.1 (0.0-0.4); EOSINOPHILS % 2.2 % (0.0-6.0); HEMATOCRIT 32.7 % (38.2-49.6); HEMOGLOBIN 11.3 g/dL (14.0-18.0); LYMPHOCYTES # (AUTO) 2.1 (1.0-3.2); LYMPHOCYTES % 32.9 % (18.0-39.1); MEAN CORPUSCULAR HEMOGLOBIN 30.4 pg (28-32); MEAN CORPUSCULAR HGB CONC 34.6 g/dL (31-35); MEAN CORPUSCULAR VOLUME 87.9 fL (81-99); MONOCYTES # (AUTO) 0.6 (0.2-0.8); MONOCYTES % 9.9 % (4.4-11.3); NEUTROPHILS # (AUTO) 3.5 (2.1-6.9); NEUTROPHILS % 53.5 % (38.7-80.0); PLATELET COUNT 175 x10e3/uL (140-360); RED BLOOD COUNT 3.72 x10e6/uL (4.3-5.7); RED CELL DISTRIBUTION WIDTH 11.9 % (11.7-14.4)
[2020-07-28 05:40] LABS: ANION GAP 14.1 mmol/L (8-16); BLOOD UREA NITROGEN 16 mg/dL (7-26); BUN/CREATININE RATIO 14 (6-25); CALCIUM 8.4 mg/dL (8.4-10.2); CARBON DIOXIDE 21 mmol/L (22-29); CHLORIDE 109 mmol/L (98-107); CREATININE, SERUM 1.13 mg/dL (0.72-1.25); EST GLOMERULAR FILTRATION RATE > 60 ML/MIN (60-); GLUCOSE 135 mg/dL (74-118); POTASSIUM 4.1 mmol/L (3.5-5.1); SODIUM 140 mmol/L (136-145)
--- NOTE | 2020-07-28 06:42 | Diagnostic Imaging Report ---
X-ray pelvis 1 view and bilateral hips 2 views each HISTORY: Pain. COMPARISON: None available. FINDINGS: Some osseous structures are partially obscured by bowel contents. Bones: No acute displaced fracture. Osseous alignment is within normal limits. Joints: The joint spaces are well-maintained. Soft tissues: The soft tissues appear unremarkable. IMPRESSION: No acute radiographic abnormality. Signed by: Graham Rodriguez DO on 07/28/2020 6:39 AM
--- NOTE | 2020-07-28 07:00 | NUR ---
RECEIVED PATIENT RESTING IN BED NO S/S OF DISTRESS. BED LOW, WHEELS LOCKED, SIDE RAILS X2. CALL LIGHT IN REACH WILL CONTINUE TO MONITOR PATIENT.
[2020-07-28] MEDS: INSULIN LISPRO 100 UNIT/1 ML 3ML VIAL SQ SCH ×2 (07:30→11:30)
[2020-07-28] MEDS: SITAGLIPTIN 100 MG TAB PO SCH (08:04)
[2020-07-28 08:51] VITALS: BP 160/89
[2020-07-28 09:36] VITALS: BP 160/89
--- NOTE | 2020-07-28 10:54 | NUR ---
PATIENT REFUSING VITAL SIGN AND BLOOD SUGAR CHECK.
[2020-07-28] MEDS ORDERED: TYLENOL # 31 EA PO (14:57)
[2020-07-28] MEDS ORDERED: CEFTIN PO (14:58)
--- NOTE | 2020-07-28 15:05 | NUR ---
REMOVED PATIENTS IV. CATHETER TIP INTACT AND PRESSURE DRESSING APPLIED.
--- NOTE | 2020-07-28 15:32 | NUR ---
PATIENT DISCHARGED HOME IN STABLE CONDITION. PATIENT GATHERED ALL PERSONAL BELONGINGS
--- NOTE | 2020-07-29 01:58 | Discharge Summary ---
FINAL DISCHARGE DIAGNOSES: 1. Right-sided flank pain with obstructive uropathy, in which the patient had a stone passed prior to being discharged. 2. Type 2 diabetes. 3. Pyelonephritis with urinary tract infection. 4. Morbid obesity. 5. Hypertension. CONSULTANTS: Neurology. PHYSICAL EXAMINATION: VITAL SIGNS: Temperature is 98.3, pulse 70, respirations 20, blood pressure 160/89, pulse ox 100% on room air. LABORATORY FINDINGS: Show white count is 6.4, hemoglobin 11.3, hematocrit is 32, platelets of 175. Chemistry; sodium 140, potassium 4.1, chloride 109, bicarb 20, anion gap of 14, BUN 16, creatinine is 1.1, glucose 134, calcium is 8.4, uric acid was 8.3, PTH was 29. Urinalysis shows 6-10 rbc's, 2+ blood, 1+ glucose. Coronavirus not detected. MICROBIOLOGY: Urine cultures were found to be negative. IMAGING STUDIES: On 07/25/2020, CT abdomen and pelvis shows a 3 mm distal right ureter obstructive calculus with mild right hydroureter nephrosis. Right-sided perinephric and periureteral fat stranding superimposed urinary tract infection cannot be excluded. Suspected right renal inferior pole cyst. Evaluation of renal parenchyma is limited without IV contrast. Hepatic steatosis. There are some concerns of a right iliac lytic lesion with sclerotic border, possibly benign to the imaging. He did get his x-ray on discharge that shows no acute radiographic abnormality. This test was ordered due to the fact that the CT abdomen and pelvis was discussed on 07/25/2020. Abdominal x-ray on 07/26/2020, shows a distal right ureteral stone still present and there is a repeat CT abdomen and pelvis on 07/27/2020, shows a 3 mm right distal ureteral calculus moves slightly more distally compared to the prior CT on 07/25/2020, situated in the right ureterovesical junction. No significant reactive changes associated with hydroureteronephrosis and perinephric stranding. HOSPITAL COURSE: A 49-year-old male, comes into the ED with complaints of right-sided flank pain, found to have a 3 mm distal ureteral stone obstructed. The patient was admitted and Urology was consulted. The patient was on IV antibiotics, pain control, and IV fluids. While here initially, the patient did not have the stone passed, prompting further imaging studies, which still showed obstruction in the distal right ureter, 3 mm stone. He did have some mild hydroureteronephrosis. Neurology evaluated the patient on several occasions. He was also maintained on IV antibiotic therapy. Urine cultures found to be negative. Eventually, the patient passed the stone on 07/28/2020, in the early mornings. The patient then did well with very minimal pain prior to being discharged. He was cleared for discharge by Urology. The patient was discharged on pain control as well as oral antibiotics and was advised to follow up with Urology in about 2 weeks' time. The patient reportedly states he is doing well with no complaints. On the day of discharge, vital signs are stable. Labs reviewed and stable. The patient is seen and evaluated, examined thoroughly on the day of discharge. No other complaints. The patient verbalized understanding and agrees to plan of care to follow up accordingly as an outpatient with primary care physician in 1 week and the urologist in 2 weeks' time. MEDICATIONS: See med reconciliation form. DISPOSITION: Home. CONDITION: Stable. DIET: Heart healthy. In the event of any worsening symptoms, the patient was advised to come back to the ED for further evaluation. Discharge summary took greater than 35 minutes. MD SONNY Mae/RYANNE /[id number]
== END 2020-07-28 15:32 | disposition home or self-care (01) | DRG 683 ==
LOC: ER 20:30 → ERHOLD 23:41 → MED/SURG 07-26 00:02
PROVIDERS: ADMIT Internal Medicine; ATTEND Internal Medicine
DX: N17.9 Acute kidney failure, unspecified (principal); E87.1 Hypo-osmolality and hyponatremia; N13.2 Hydronephrosis with renal and ureteral calculous obstruction; E66.01 Morbid (severe) obesity due to excess calories; N10 Acute pyelonephritis; Z68.35 Body mass index [BMI] 35.0-35.9, adult; I10 Essential (primary) hypertension; E11.9 Type 2 diabetes mellitus without complications; E78.5 Hyperlipidemia, unspecified; Z11.59 Encounter for screening for other viral diseases; N28.1 Cyst of kidney, acquired; D64.9 Anemia, unspecified; R81 Glycosuria
CPT/HCPCS: 36415; 73521; 74018; 74176; 80048; 81001; 82948; 83970; 84550; 85025; 87086; 88300; 96361; 99284; J0696; J1170; J2270; J2405; J7030; U0002